=== PATIENT | male | born 1960 | race Caucasian/White ===

== ENCOUNTER 2024-10-22 11:57 | Observation (INO) ==
--- NOTE | 2024-09-14 11:55 | Anesthesiology Consultation ---
Date of Service September 14, 2024 Assessment & Plan (1) Encounter for pre-operative examination: - Infectious disease screening: Per assessment on 09/14/24- No known recent infectious disease contacts or current infectious disease symptoms. - Check BSG DOS - Check BMP DOS (Peritoneal dialysis HS) - Ozempic instructions: Patient informed by PAT to stop 7 days prior to surgery- voiced understanding. DOS 09/21/24. Per PAT RN phone interview, patient's last dose will be 08/24/24. - Neurology note 05/07/24: Per note, pt "presented to [facility] in March 2024 with left hand weakness and found to have an Acute right precentral gyrus stroke - suspect cardioembolic with evidence of old left occipital and right cerebellar strokes." (Note: CVA 03/31/24) "Impression: 1. acute right precentral gyrus stroke in March 2024, 2. old left occipital and small right cerebellar peduncle infarcts, 3. gait instability due to severe peripheral neuropathy, 4. cervical spinal stenosis, 5. tongue rolling - possible TD. Reglan stopped 2 weeks ago, 5. severe peripheral neuropathy." Gabapentin dosing adjusted to help with neuropathy. No additional changes made. 'F/u as scheduled." - Cardiology visit 07/29/24: "Coronary artery disease status post stenting of RCA (the setting of STEMI 10/2023, prior stenting February 2023).. Heart failure recovered ejection fraction, Dx 03/2024, in the setting of CVA.. ESRD on peritoneal dialysis.. Continue aspirin and Plavix.. Acute heart failure with recovered ejection fraction.. Euvolemic on exam.. Cryptogenic CVA: S/p loop recorder. No A-fib so far." > Cardiology made aware of upcoming urology surgery- advised from their perspective that patient okay to hold Plavix 5 days prior to surgery and continue ASA perioperatively > Given patient had CVA 03/2024, ultimate decision for patient to remain on ASA/plavix perioperatively. - Patient with recent stroke 03/2024 and cardiac stent x1 10/2023. Surgeon's office made aware of recent stroke/stent/increased risks. Per Roselia with surgeon's office, surgeon will have patient continue ASA/plavix perioperatively given recent stroke (patient aware). Patient had cystoscopy, stent placement, ureteral dilation done 09/10/24 under [place] (Grade view 1, glidescope#4, ETT 7.5 at [facility]) without issue. Prior to this surgery, case reviewed with Dr. Ballard. Given patient to remain on ASA/plavix perioperatively, he felt patient okay to proceed with given surgery. Patient now scheduled for cystoscopy, ureteral dilation, laser destruction/extraction, stent 09/21/24. Confirmed with patient/ via phone 09/14/24 that patient will again be continuing ASA/plavix perioperatively. Patient acceptable risk for given surgery pending evaluation DOS. Chart Review Chart Review: Patient NOT seen in Pre Admission Testing History Surgery Operation Date: 09/21/24 12:50 Proposed Procedures p Cystoscopy Ureteronephroscopy, Retrograde Pyelogram with Possible Ureteral Dilation, Laser Destruction or Extraction of the Stone, Insertion or Exchange of Stent Catheter Bilateral - Darrius Ceron, Height/Weight Height: 6 ft Weight: 114.305 kg Allergies Allergy/AdvReac Type Severity Reaction Status Date / Time metoclopramide [From Reglan] Allergy Severe Tardive Verified 09/14/24 10:53 dyskinesia scopolamine Allergy Severe Hallucinati Verified 09/14/24 10:53 ng Medications Home Medications Medication Instructions Recorded Confirmed Last Taken allopurinol 100 mg tablet 100 mg PO QAM 08/21/24 09/14/24 09/09/24 11:00 alprazolam 0.25 mg tablet (Xanax) 0.25 mg PO DAILY PRN Anxiety 08/21/24 09/14/24 Unknown aspirin 81 mg tablet,delayed 81 mg PO HS 08/21/24 09/14/24 09/09/24 22:00 release atorvastatin 40 mg tablet 40 mg PO HS 08/21/24 09/14/24 09/09/24 22:00 bisacodyl 10 mg rectal suppository 10 mg [place] UD PRN Constipation 08/21/24 09/14/24 Unknown cetirizine 10 mg tablet (Zyrtec) 10 mg PO DAILY PRN Congestion 08/21/24 09/14/24 Unknown clopidogrel 75 mg tablet 75 mg PO QAM 08/21/24 09/14/24 09/09/24 11:00 evolocumab 140 mg/mL subcutaneous 140 mg subcut UD 08/21/24 09/14/24 09/08/24 22:00 pen injector (Repatha SureClick) finasteride 5 mg tablet 5 mg PO QAM 08/21/24 09/14/24 09/09/24 11:00 gabapentin 100 mg capsule 200 mg PO BID 08/21/24 09/14/24 09/10/24 09:30 hydralazine 50 mg tablet 25 mg PO BID 08/21/24 09/14/24 09/10/24 09:30 hydrocodone 5 mg-acetaminophen 325 1 tab PO Q6H PRN Pain 08/21/24 09/14/24 Unknown mg tablet hydroxyzine HCl 25 mg tablet 25 mg PO QID PRN Itching 08/21/24 09/14/24 09/09/24 22:00 linaclotide 145 mcg capsule 145 mcg PO DAILY 08/21/24 09/14/24 Unknown (Linzeslinda) magnesium oxide 400 mg (241.3 mg 400 mg PO BID 08/21/24 09/14/24 09/09/24 22:00 magnesium) tablet metoprolol succinate 50 mg 50 mg PO QAM 08/21/24 09/14/24 09/09/24 09:30 tablet,extended release 24 hr nitroglycerin 0.4 mg sublingual 0.4 mg buccal UD PRN Chest Pain 08/21/24 09/14/24 Unknown tablet oxycodone 5 mg tablet 5 mg PO BID PRN Pain 08/21/24 09/14/24 09/09/24 22:00 oxycodone 5 mg tablet 5 mg PO UD PRN Pain 08/21/24 09/14/24 Unknown pantoprazole 40 mg tablet,delayed 40 mg PO QAM 08/21/24 09/14/24 09/09/24 09:30 release polyethylene glycol 3350 17 17 g PO DAILY PRN Constipation 08/21/24 09/14/24 09/08/24 14:00 gram/dose oral powder (Miralax) potassium chloride 20 mEq 10 meq PO BID 08/21/24 09/14/24 09/09/24 11:00 tablet,extended release semaglutide 0.25 mg or 0.5 mg (2 0.25 mg subcut WK 08/21/24 09/14/24 08/31/24 22:00 mg/3 mL) subcutaneous pen injector (Amy) senna-docusate sodium capsule 1 - 2 cap PO HS 08/21/24 09/14/24 09/08/24 22:00 sucroferric oxyhydroxide 500 mg 500 mg PO BID 08/21/24 09/14/24 09/09/24 22:00 chewable tablet (Velphoro) temazepam 7.5 mg capsule (Restoril) 7.5 mg PO HS PRN Sleep 08/21/24 09/14/24 Unknown vit B,C-folic ac 800 mcg-zinc 12.5 1 tab PO QAM 08/21/24 09/14/24 09/09/24 11:00 mg-selen-D3 2,000 unit-vit E tablet (RenaPlex-D) alfuzosin 10 mg tablet,extended 10 mg PO HS 09/02/24 09/14/24 09/09/24 22:00 release 24 hr dupilumab 300 mg/2 mL subcutaneous 300 mg subcut UD 09/02/24 09/14/24 09/08/24 22:00 pen injector (Dupixent) insulin degludec 200 unit/mL (3 65 unit subcut HS 09/02/24 09/14/24 09/09/24 22:00 mL) subcutaneous pen (Tresiba FlexTouch U-200 insulin) insulin lispro 100 unit/mL 5 unit subcut BID 09/02/24 09/14/24 09/09/24 20:00 subcutaneous pen (Humalog KwikPen (U-100) Insulin) cephalexin 500 mg capsule 500 mg PO BID 7 days #14 caps 09/10/24 09/14/24 Unknown phenazopyridine 200 mg tablet 200 mg PO Q8H PRN pain #10 tabs 09/10/24 09/14/24 Unknown (Pyridium) tamsulosin 0.4 mg capsule 0.4 mg PO HS #30 caps 09/10/24 09/14/24 Unknown Past Medical History Medical History AV fistula Left wrist > "not functioning" BPH w urinary obs/LUTS Diabetes Dialysis patient Peritoneal at home through the night ESRD (end stage renal disease) Gastroparesis Heart failure Echo 03/2024 History of COVID-19 09/2023 History of kidney stones History of stroke 03/2024 > Left hand weakness Follows with [facility] neuro [place] Hx of bronchitis "Chronic" per patient, no noted acute flares/issues Hx of myocardial infarction 1998, 10/2023 Hx of traumatic brain injury Brain bleed 2021 after fall > "resolved", no issues since Hypercholesteremia Nephrolithiasis Neuropathy "Severe" > mobility issues Peritoneal dialysis catheter in place Sleep apnea CPAP Status post placement of implantable loop recorder Implanted 05/2024 Tardive dyskinesia R/t hx Reglan use Thyroid cancer Recent dx 06/2024 Wheelchair dependent Past Family History Family History Father Diabetes Hypertension Heart disease Melanoma Mother Diabetes Hypertension Heart disease Past Surgical History Surgical History 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 History of cardiac cath (10/2023) 10/2023 > stent x1 History of colonoscopy History of esophagogastroduodenoscopy (EGD) History of heart artery stent 10/2023 > stent x1 History of lithotripsy Hx of vascular surgery Ballooning procedure to left leg S/P cystoscopy with ureteral stent placement (09/10/24[facility], most recent 09/10/24 Social History Smoking Status: Never smoker Do You Dip or Chew Tobacco: No Hx Alcohol Use: No Hx Substance Use: No substance use type: does not use Lab Results Anesthesia Preop Results Results Anesthesia Widget: Na 137 mmol/L (136-145) 09/11/24 K 4.9 mmol/L (3.5-5.1) 09/11/24 Cl 96 mmol/L (98-107) L 09/11/24 CO2 25 mmol/L (21-32) 09/11/24 BUN 61 mg/dl (6-23) H 09/11/24 Creat 9.58 mg/dl (0.6-1.4) H* 09/11/24 Glucose Level 168 mg/dl (70-99(Fasting)) H 09/11/24 Testing Laboratory Results 09/03/24 WBC 7.8 H/H 12.0/35.9 PLATELETS 195 URINE CULTURE less than 10,000 cfu/mL Electrocardiogram Date: 03/31/24 NSR at 77bpm. LAD. RBBB. Septal infarct, age undetermined. Possible lateral infarct, age undetermined. unconfirmed report. Echo 03/31/24. Chest X-Ray Date: 04/03/24 Right dialysis catheter tip at the cavoatrial junction. No pneumothorax. No effusion or consolidation. Echocardiogram Date: 07/10/24 LVEF 50-55%. Diastolic function could not be assessed due to incomplete data.
[~2024-10-22 11:57] MED LIST: SODIUM CHLORIDE 0.9% 1000ML IV SCH; ceFAZolin 2000MG 2,000 MG/15 ML SYR IV SCH
[2024-10-22] MEDS ORDERED: ALPRAZolam 0.25 MG TABLET PO PRN (12:43)
[2024-10-22] MEDS ORDERED: TEMAZEPAM 7.5 MG CAPSULE PO PRN (12:43)
[2024-10-22] MEDS ORDERED: bisacodyL 10 MG SUPP PR PRN (12:43)
--- NOTE | 2024-10-22 12:43 | History & Physical Report ---
Date of Service October 22, 2024 Assessment & Plan (1) Nephrolithiasis: (2) Neuropathy: (3) End stage renal disease: (4) BPH w urinary obs/LUTS: Plan Large bilateral stone disease with fast reoccurrence of stone and poorly tolerated previous interventions. Not interested in other options for treatment. On peritoneal dialysis with chronic severe end stage renal disease. Medications for stone management have been less effective as renal disease worsened. Extensively discuss need for staged treatment with possible multiple interventions bilaterally with ureteroscopy in order to clear the bulkiness of the stones. Discussed options for conservative measure and maximum expulsion medical therapy and symptom controlled. Discussed ESWL. Discussed Ureteroscopy with extraction and/or laser lithotripsy. Risks and benefits were discussed. Stone free rates were also discussed as well as possibility of multiple procedures. Ureteral stents were discussed as well as post-operative issues and pain management. All questions were answered. Plan for cystoscopy with possible bilateral ureteroscopy and stone treatment. Will likely need multiple interventions possibly with multiple interventions bilaterally in order to clear the large stone burden. Patient and family worried about infection and issues post procedure. Plan for observation overnight. Will consult nephrology with plans for dialysis management during observation. Likely discharge tomorrow History of Present Illness Primary Care Provider: Vishal Oshea Patient here for procedure. No changes in medical issues. No major changes in urinary issues. Continued issues and concerns. No change in pain or discomfort. No severe fevers or chills. No chest pain or shortness of breath. Risks and benefits discussed at length for procedure. These include bleeding, infection, injury to surrounding tissues or organs, and risks associated with anesthesia. Patient and/or family states understanding and agrees to proceed. Consent and supporting information completed. Allergies Allergy/AdvReac Type Severity Reaction Status Date / Time metoclopramide [From Reglan] Allergy Severe Tardive Verified 10/22/24 12:29 dyskinesia scopolamine Allergy Severe Hallucinati Verified 10/22/24 12:29 ng Home Medications Medication Instructions Recorded Confirmed Type allopurinol 100 mg tablet 100 mg PO QAM 08/21/24 10/19/24 History alprazolam 0.25 mg tablet (Xanax) 0.25 mg PO DAILY PRN Anxiety 08/21/24 10/19/24 History aspirin 81 mg tablet,delayed 81 mg PO HS 08/21/24 10/19/24 History release atorvastatin 40 mg tablet 40 mg PO HS 08/21/24 10/19/24 History bisacodyl 10 mg rectal suppository 10 mg [place] UD PRN Constipation 08/21/24 10/19/24 History clopidogrel 75 mg tablet 75 mg PO QAM 08/21/24 10/19/24 History evolocumab 140 mg/mL subcutaneous 140 mg subcut UD 08/21/24 10/19/24 History pen injector (Gregor LondonKirit) finasteride 5 mg tablet 5 mg PO QAM 08/21/24 10/19/24 History gabapentin 100 mg capsule 300 mg PO QAM 08/21/24 10/19/24 History hydralazine 50 mg tablet 25 mg PO BID 08/21/24 10/19/24 History hydroxyzine HCl 25 mg tablet 25 mg PO QID PRN Itching 08/21/24 10/19/24 History magnesium oxide 400 mg (241.3 mg 400 mg PO BID 08/21/24 10/19/24 History magnesium) tablet nitroglycerin 0.4 mg sublingual 0.4 mg buccal UD PRN Chest Pain 08/21/24 10/19/24 History tablet oxycodone 5 mg tablet 5 mg PO BID PRN Pain 08/21/24 10/19/24 History pantoprazole 40 mg tablet,delayed 40 mg PO QAM 08/21/24 10/19/24 History release polyethylene glycol 3350 17 17 g PO DAILY PRN Constipation 08/21/24 10/19/24 History gram/dose oral powder (Miralax) potassium chloride 20 mEq 10 meq PO BID 08/21/24 10/19/24 History tablet,extended release senna-docusate sodium capsule 1 - 2 cap PO HS 08/21/24 10/19/24 History sucroferric oxyhydroxide 500 mg 500 mg PO BID 08/21/24 10/19/24 History chewable tablet (Velphoro) temazepam 7.5 mg capsule (Restoril) 7.5 mg PO HS PRN Sleep 08/21/24 10/19/24 History vit B,C-folic ac 800 mcg-zinc 12.5 1 tab PO QAM 08/21/24 10/19/24 History mg-selen-D3 2,000 unit-vit E tablet (RenaPlex-D) dupilumab 300 mg/2 mL subcutaneous 300 mg subcut UD 09/02/24 10/19/24 History pen injector (Dupixent) insulin degludec 200 unit/mL (3 50 unit subcut HS 09/02/24 10/19/24 History mL) subcutaneous pen (Tresiba FlexTouch U-200 insulin) insulin lispro 100 unit/mL 5 - 10 unit subcut BID 09/02/24 10/19/24 History subcutaneous pen (Humalog KwikPen (U-100) Insulin) cinacalcet 30 mg tablet (Sensipar) 30 mg PO 3XWK 10/19/24 10/19/24 History lactulose 10 gram/15 mL oral 10 g PO DAILY PRN Constipation 10/19/24 10/19/24 History solution Past Med/Surg History Problem List Elevated serum creatinine Hypercholesterolemia Medical History History of recent hospitalization admitted 09/17/24 @ [facility]--severely dehydrated, had low BP, very weak, low urine output (bloody urine) History of kidney stones Hx of traumatic brain injury Brain bleed 2021 after fall > "resolved", no issues since Tardive dyskinesia R/t hx Reglan use Wheelchair dependent AV fistula Left wrist > "not functioning" Thyroid cancer Recent dx 06/2024--"very large nodule"--having thyroid ultrasound for follow up 10/20/24 @ [facility] Station Medical History of COVID-19 09/2023 Hx of myocardial infarction 1998, 10/2023 Status post placement of implantable loop recorder Implanted 05/2024 Hypercholesteremia Diabetes Gastroparesis BPH w urinary obs/LUTS Nephrolithiasis Neuropathy "Severe" > mobility issues ESRD (end stage renal disease) Peritoneal dialysis catheter in place Sleep apnea CPAP Hx of bronchitis "Chronic" per patient, no noted acute flares/issues History of stroke 03/2024 > Left hand weakness Follows with [facility] neuro [place] Dialysis patient Peritoneal at home through the night Heart failure Echo 03/2024 Surgical History S/P cystoscopy with ureteral stent placement (09/10/24) [facility], most recent 09/10/24 History of lithotripsy 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 Hx of vascular surgery Ballooning procedure to left leg History of esophagogastroduodenoscopy (EGD) History of colonoscopy History of heart artery stent 10/2023 > stent x1 History of cardiac cath (10/2023) 10/2023 > stent x1 Family History Father Diabetes Hypertension Heart disease Melanoma Mother Diabetes Hypertension Heart disease Social History Smoking Status: Never smoker Second Hand Exposure: No; Do You Dip or Chew Tobacco: No; Tobacco Cessation Education Requested by Patient: No Hx Alcohol Use: No Hx Substance Use: No Preferred Language: Croatian Communication Ability: Effective Small Engine Mechanic Required: No Beliefs That Will Affect Care: None marital status: Current Living Situation: Spouse Other Information That Helps Us Care for You: No Safety Concerns: Feels Safe At This Time Assistive Devices: CPAP, Glasses, Walker and Wheelchair Review of Systems All systems reviewed & are unremarkable except as noted in HPI & below Physical Exam Physical Exam: General: Alert/Arousable. No Acute illness. . HEENT: Inspection normal. Normal inspection of face. Normal inspection of neck. Psychologic: Normal affect/No change in mentation. Respiratory: No use of accessory muscles. No respiratory changes or exacerbation or changes with tachypnea or dyspnea. Cardiovascular: No tachycardia Skin: Aneta and Dry. No new rashes or visible lesions. Abdomen: Normal inspection. No guarding. Results & Data Vital Signs (Past 12 Hours) Vital Signs Temp Pulse Resp BP Pulse Ox O2 Del Method 10/22/24 12:31 36.6 C 69 20 113/95 100 Room Air PG Care Time/CCT Total # of Minutes Spent Total Time Spent with Patient: Total time spent is greater than 50% in coordination of care (as documented) at patient's floor/unit and/or counseling patient: Coding Level of Care Code None Diagnoses Nephrolithiasis N20.0 Neuropathy G62.9 End stage renal disease N18.6 BPH w urinary obs/LUTS N40.1; N13.8
[2024-10-22 12:45] LABS: BUN Creatinine Ratio 5.1 (10-20); Calcium 10.8 mg/dl (8.6-10.3); Creatinine Clr Calc Pharmacy 10.2 ml/min; Potassium 4.7 mmol/L (3.5-5.1)
[2024-10-22] MEDS ORDERED: PROPOFOL IV EMULSION 10 MG/ML 20 ML VIAL IV ONE (12:53)
[2024-10-22] MEDS ORDERED: LIDOCAINE 2% 2 ML VIAL/AMP(20MG/ML) INFIL ONE ×2 (12:54→12:55)
[2024-10-22] MEDS ORDERED: fentaNYL citrate PF 100 MCG/2 ML VIAL ONE (12:56)
[2024-10-22] MEDS ORDERED: MIDAZOLAM HCL 1 MG/ML 2ML VIAL ONE (12:56)
[2024-10-22] MEDS: SODIUM CHLORIDE 0.9% 1000ML IV SCH (12:58)
[2024-10-22] MEDS ORDERED: ROCURONIUM BROMIDE 10 MG/ML 5 ML VIAL IV ONE (12:58)
[2024-10-22] MEDS ORDERED: ONDANSETRON INJ 2 MG/ML 2 ML VIAL ONE (12:59)
[2024-10-22] MEDS ORDERED: PROMETHAZINE HCL 6.25 MG in SODIUM CHLORIDE 0.9% 50 ML IV PRN (13:31)
[2024-10-22] MEDS ORDERED: ATROPINE SULFATE 0.1 MG/ML 10ML SYR IV PRN (13:31)
[2024-10-22] MEDS ORDERED: ePHEDrine sulfate 50 MG/ML AMP IV PRN (13:31)
--- NOTE | 2024-10-22 13:31 | Anesthesiology Consultation ---
Date of Service October 22, 2024 Assessment & Plan Consults Requested medical & cardiac Pulmonary ASA ASA3 Proposed Anesthesia Anesthesia Type: General (ET tube with rapid sequence induction given patient with gastroparesis and high risk of aspiration ) Risk / Benefits Reviewed With: PT / POA / Parent / Guardian, Accepts Plan and Informed Consent Obtained History Surgery Operation Date: 10/22/24 13:25 Proposed Procedures p Cystoscopy Ureteronephroscopy, Retrograde Pyelogram with Possible Ureteral Dilation, Laser Destruction or Extraction of the Stone, Insertion or Exchange of Stent Catheter Bilateral - Darrius Ceron, Height/Weight Height: 6 ft Weight: 115.212 kg Allergies Allergy/AdvReac Type Severity Reaction Status Date / Time metoclopramide [From Reglan] Allergy Severe Tardive Verified 10/22/24 12:29 dyskinesia scopolamine Allergy Severe Hallucinati Verified 10/22/24 12:29 ng Medications Home Medications Medication Instructions Recorded Confirmed Last Taken allopurinol 100 mg tablet 100 mg PO QAM 08/21/24 10/22/24 10/21/24 12:00 alprazolam 0.25 mg tablet (Xanax) 0.25 mg PO DAILY PRN Anxiety 08/21/24 10/19/24 Unknown aspirin 81 mg tablet,delayed 81 mg PO HS 08/21/24 10/22/24 10/21/24 12:00 release atorvastatin 40 mg tablet 40 mg PO HS 08/21/24 10/22/24 10/21/24 22:00 bisacodyl 10 mg rectal suppository 10 mg MD UD PRN Constipation 08/21/24 10/19/24 Unknown clopidogrel 75 mg tablet 75 mg PO QAM 08/21/24 10/22/24 10/20/24 12:00 evolocumab 140 mg/mL subcutaneous 140 mg subcut UD 08/21/24 10/22/24 10/20/24 14:00 pen injector (Gregor Delcid) finasteride 5 mg tablet 5 mg PO QAM 08/21/24 10/22/24 10/21/24 12:00 gabapentin 100 mg capsule 300 mg PO QAM 08/21/24 10/22/24 10/22/24 10:00 hydralazine 50 mg tablet 25 mg PO BID 08/21/24 10/22/24 10/22/24 10:00 hydroxyzine HCl 25 mg tablet 25 mg PO QID PRN Itching 08/21/24 10/22/24 10/21/24 12:00 magnesium oxide 400 mg (241.3 mg 400 mg PO BID 08/21/24 10/22/24 10/21/24 22:00 magnesium) tablet nitroglycerin 0.4 mg sublingual 0.4 mg buccal UD PRN Chest Pain 08/21/24 10/19/24 Unknown tablet oxycodone 5 mg tablet 5 mg PO BID PRN Pain 08/21/24 10/22/24 10/21/24 12:00 pantoprazole 40 mg tablet,delayed 40 mg PO QAM 08/21/24 10/22/24 10/22/24 10:00 release polyethylene glycol 3350 17 17 g PO DAILY PRN Constipation 08/21/24 10/19/24 09/08/24 14:00 gram/dose oral powder (Miralax) potassium chloride 20 mEq 10 meq PO BID 08/21/24 10/22/24 10/21/24 12:00 tablet,extended release senna-docusate sodium capsule 1 - 2 cap PO HS 08/21/24 10/19/24 09/08/24 22:00 sucroferric oxyhydroxide 500 mg 500 mg PO BID 08/21/24 10/22/24 10/21/24 17:00 chewable tablet (Velphoro) temazepam 7.5 mg capsule (Restoril) 7.5 mg PO HS PRN Sleep 08/21/24 10/19/24 Unknown vit B,C-folic ac 800 mcg-zinc 12.5 1 tab PO QAM 08/21/24 10/22/24 10/21/24 12:00 mg-selen-D3 2,000 unit-vit E tablet (RenaPlex-D) dupilumab 300 mg/2 mL subcutaneous 300 mg subcut UD 09/02/24 10/22/24 10/20/24 22:00 pen injector (Dupixent) insulin degludec 200 unit/mL (3 50 unit subcut HS 09/02/24 10/22/24 10/21/24 22:00 mL) subcutaneous pen (Tresiba FlexTouch U-200 insulin) insulin lispro 100 unit/mL 5 - 10 unit subcut BID 10/10/22/24 10/21/24 21:00 subcutaneous pen (Humalog KwikPen (U-100) Insulin) cinacalcet 30 mg tablet (Sensipar) 30 mg PO 3XWK 10/19/24 10/22/24 10/21/24 12:00 lactulose 10 gram/15 mL oral 10 g PO DAILY PRN Constipation 10/19/24 10/22/24 10/21/24 22:00 solution Active Medications Generic Name Dose Route Start Last Admin Trade Name Kayla PRN Reason Stop Dose Admin Sodium Chloride 1,000 mls @ 15 mls/hr 10/22/24 16:00 10/22/24 12:58 Nss IV 10/23/24 15:59 15 mls/hr .Q24H JOHNNY Administration NPO Date Last Intake of Fluids: 10/22/24 Time Last Intake of Fluids: 10:00 Last Intake of Fluids Comment: sip with meds Date Last Intake of Solids: 10/21/24 Time Last Intake of Solids: 21:30 Past Medical History Medical History History of recent hospitalization admitted 09/17/24 @ [facility]--severely dehydrated, had low BP, very weak, low urine output (bloody urine) History of kidney stones Hx of traumatic brain injury Brain bleed 2021 after fall > "resolved", no issues since Tardive dyskinesia R/t hx Reglan use Wheelchair dependent AV fistula Left wrist > "not functioning" Thyroid cancer Recent dx 06/2024--"very large nodule"--having thyroid ultrasound for follow up 10/20/24 @ [facility] Station Medical History of COVID-19 09/2023 Hx of myocardial infarction 1998, 10/2023 Status post placement of implantable loop recorder Implanted 05/2024 Hypercholesteremia Diabetes Gastroparesis BPH w urinary obs/LUTS Nephrolithiasis Neuropathy "Severe" > mobility issues ESRD (end stage renal disease) Peritoneal dialysis catheter in place Sleep apnea CPAP Hx of bronchitis "Chronic" per patient, no noted acute flares/issues History of stroke 03/2024 > Left hand weakness Follows with [facility] neuro Holder Dialysis patient Peritoneal at home through the night Heart failure Echo 03/2024 Exercise / Class Metabolic Activity II 4-5 Yardwork/Stairs/Walk up hill Past Family History Family History Father Diabetes Hypertension Heart disease Melanoma Mother Diabetes Hypertension Heart disease Past Surgical History Surgical History S/P cystoscopy with ureteral stent placement (09/10/24) rick, most recent 09/10/24 History of lithotripsy 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 Hx of vascular surgery Ballooning procedure to left leg History of esophagogastroduodenoscopy (EGD) History of colonoscopy History of heart artery stent 10/2023 > stent x1 History of cardiac cath (10/2023) 10/2023 > stent x1 Past Anesthesia History No Hx of Anesthesia Complications and No Family Hx of Anesthesia Complications History of PONV No Hx of PONV and No Hx of Motion Sickness Social History Smoking Status: Never smoker Do You Dip or Chew Tobacco: No Hx Alcohol Use: No Hx Substance Use: No substance use type: does not use Physical Exam Vital Signs Last Vital Signs Temp 36.6 C 10/22/24 12:31 Pulse 69 10/22/24 12:31 Resp 20 10/22/24 12:31 BP 113/95 10/22/24 12:31 Pulse Ox 100 10/22/24 12:31 O2 Del Method Room Air 10/22/24 12:31 Constitutional no acute distress ENMT Mouth: no dentition abnormality Thyromental Distance: > or= 3.5 Finger Breadths Mallampati Class: II Neck normal visual inspection Respiratory normal respiratory effort; no respiratory distress Auscultation: lungs clear to auscultation bilaterally Cardiovascular Rate/Rhythm: regular rate and regular rhythm Heart Sounds: no murmur Musculoskeletal Spine: normal cervical ROM Psychiatric Orientation: alert and oriented x 3 Testing Laboratory Results 10/22/24 12:09 10/22/24 12:29 POC Glucose 186 H Electrocardiogram Date: 03/31/24 NSR at 77bpm. LAD. RBBB. Septal infarct, age undetermined. Possible lateral infarct, age undetermined. unconfirmed report. Echo 03/31/24. Chest X-Ray Date: 04/03/24 Right dialysis catheter tip at the cavoatrial junction. No pneumothorax. No effusion or consolidation. Echocardiogram Date: 07/10/24 LVEF 50-55%. Diastolic function could not be assessed due to incomplete data. Day of Procedure Evaluation. Date of Surgery October 22, 2024 Height/Weight Height: 6 ft Weight: 115.212 kg Vital Signs Last Vital Signs Temp 36.6 C 10/22/24 12:31 Pulse 69 10/22/24 12:31 Resp 20 10/22/24 12:31 BP 113/95 10/22/24 12:31 Pulse Ox 100 10/22/24 12:31 O2 Del Method Room Air 10/22/24 12:31 Allergies Allergy/AdvReac Type Severity Reaction Status Date / Time metoclopramide [From Reglan] Allergy Severe Tardive Verified 10/22/24 12:29 dyskinesia scopolamine Allergy Severe Hallucinati Verified 10/22/24 12:29 ng Medications Home Medications Medication Instructions Recorded Confirmed Last Taken allopurinol 100 mg tablet 100 mg PO QAM 08/21/24 10/22/24 10/21/24 12:00 alprazolam 0.25 mg tablet (Xanax) 0.25 mg PO DAILY PRN Anxiety 08/21/24 10/19/24 Unknown aspirin 81 mg tablet,delayed 81 mg PO HS 08/21/24 10/22/24 10/21/24 12:00 release atorvastatin 40 mg tablet 40 mg PO HS 08/21/24 10/22/24 10/21/24 22:00 bisacodyl 10 mg rectal suppository 10 mg MD UD PRN Constipation 08/21/24 10/19/24 Unknown clopidogrel 75 mg tablet 75 mg PO QAM 08/21/24 10/22/24 10/20/24 12:00 evolocumab 140 mg/mL subcutaneous 140 mg subcut UD 08/21/24 10/22/24 10/20/24 14:00 pen injector (Gregor Delcid) finasteride 5 mg tablet 5 mg PO QAM 08/21/24 10/22/24 10/21/24 12:00 gabapentin 100 mg capsule 300 mg PO QAM 08/21/24 10/22/24 10/22/24 10:00 hydralazine 50 mg tablet 25 mg PO BID 08/21/24 10/22/24 10/22/24 10:00 hydroxyzine HCl 25 mg tablet 25 mg PO QID PRN Itching 08/21/24 10/22/24 10/21/24 12:00 magnesium oxide 400 mg (241.3 mg 400 mg PO BID 08/21/24 10/22/24 10/21/24 22:00 magnesium) tablet nitroglycerin 0.4 mg sublingual 0.4 mg buccal UD PRN Chest Pain 08/21/24 10/19/24 Unknown tablet oxycodone 5 mg tablet 5 mg PO BID PRN Pain 08/21/24 10/22/24 10/21/24 12:00 pantoprazole 40 mg tablet,delayed 40 mg PO QAM 08/21/24 10/22/24 10/22/24 10:00 release polyethylene glycol 3350 17 17 g PO DAILY PRN Constipation 08/21/24 10/19/24 09/08/24 14:00 gram/dose oral powder (Miralax) potassium chloride 20 mEq 10 meq PO BID 08/21/24 10/22/24 10/21/24 12:00 tablet,extended release senna-docusate sodium capsule 1 - 2 cap PO HS 08/21/24 10/19/24 09/08/24 22:00 sucroferric oxyhydroxide 500 mg 500 mg PO BID 08/21/24 10/22/24 10/21/24 17:00 chewable tablet (Velphoro) temazepam 7.5 mg capsule (Restoril) 7.5 mg PO HS PRN Sleep 08/21/24 10/19/24 Unknown vit B,C-folic ac 800 mcg-zinc 12.5 1 tab PO QAM 08/21/24 10/22/24 10/21/24 12:00 mg-selen-D3 2,000 unit-vit E tablet (RenaPlex-D) dupilumab 300 mg/2 mL subcutaneous 300 mg subcut UD 09/02/24 10/22/24 10/20/24 22:00 pen injector (Dupixent) insulin degludec 200 unit/mL (3 50 unit subcut HS 09/02/24 10/22/24 10/21/24 22:00 mL) subcutaneous pen (Tresiba FlexTouch U-200 insulin) insulin lispro 100 unit/mL 5 - 10 unit subcut BID 09/02/24 10/22/24 10/21/24 21:00 subcutaneous pen (Humalog KwikPen (U-100) Insulin) cinacalcet 30 mg tablet (Sensipar) 30 mg PO 3XWK 10/19/24 10/22/24 10/21/24 12:00 lactulose 10 gram/15 mL oral 10 g PO DAILY PRN Constipation 10/19/24 10/22/24 10/21/24 22:00 solution Active Medications Generic Name Dose Route Start Last Admin Trade Name Freq PRN Reason Stop Dose Admin Sodium Chloride 1,000 mls @ 15 mls/hr 10/22/24 16:00 10/22/24 12:58 Nss IV 10/23/24 15:59 15 mls/hr .Q24H JOHNNY Administration Past Anesthesia History No Hx of Anesthesia Complications and No Family Hx of Anesthesia Complications History of PONV No Hx of PONV and No Hx of Motion Sickness NPO Date Last Intake of Fluids: 10/22/24 Time Last Intake of Fluids: 10:00 Last Intake of Fluids Comment: sip with meds Date Last Intake of Solids: 10/21/24 Time Last Intake of Solids: 21:30 HCG & FBG Results 10/22/24 12:29 POC Glucose 186 H Home Medications Home Medications Medication Instructions Recorded Confirmed Last Taken allopurinol 100 mg tablet 100 mg PO QAM 08/21/24 10/22/24 10/21/24 12:00 alprazolam 0.25 mg tablet (Xanax) 0.25 mg PO DAILY PRN Anxiety 08/21/24 10/19/24 Unknown aspirin 81 mg tablet,delayed 81 mg PO HS 08/21/24 10/22/24 10/21/24 12:00 release atorvastatin 40 mg tablet 40 mg PO HS 08/21/24 10/22/24 10/21/24 22:00 bisacodyl 10 mg rectal suppository 10 mg MD UD PRN Constipation 08/21/24 10/19/24 Unknown clopidogrel 75 mg tablet 75 mg PO QAM 08/21/24 10/22/24 10/20/24 12:00 evolocumab 140 mg/mL subcutaneous 140 mg subcut UD 08/21/24 10/22/24 10/20/24 14:00 pen injector (Gregor Delcid) finasteride 5 mg tablet 5 mg PO QAM 08/21/24 10/22/24 10/21/24 12:00 gabapentin 100 mg capsule 300 mg PO QAM 08/21/24 10/22/24 10/22/24 10:00 hydralazine 50 mg tablet 25 mg PO BID 08/21/24 10/22/24 10/22/24 10:00 hydroxyzine HCl 25 mg tablet 25 mg PO QID PRN Itching 08/21/24 10/22/24 10/21/24 12:00 magnesium oxide 400 mg (241.3 mg 400 mg PO BID 08/21/24 10/22/24 10/21/24 22:00 magnesium) tablet nitroglycerin 0.4 mg sublingual 0.4 mg buccal UD PRN Chest Pain 08/21/24 10/19/24 Unknown tablet oxycodone 5 mg tablet 5 mg PO BID PRN Pain 08/21/24 10/22/24 10/21/24 12:00 pantoprazole 40 mg tablet,delayed 40 mg PO QAM 08/21/24 10/22/24 10/22/24 10:00 release polyethylene glycol 3350 17 17 g PO DAILY PRN Constipation 08/21/24 10/19/24 09/08/24 14:00 gram/dose oral powder (Miralax) potassium chloride 20 mEq 10 meq PO BID 08/21/24 10/22/24 10/21/24 12:00 tablet,extended release senna-docusate sodium capsule 1 - 2 cap PO HS 08/21/24 10/19/24 09/08/24 22:00 sucroferric oxyhydroxide 500 mg 500 mg PO BID 08/21/24 10/22/24 10/21/24 17:00 chewable tablet (Velphoro) temazepam 7.5 mg capsule (Restoril) 7.5 mg PO HS PRN Sleep 08/21/24 10/19/24 Unknown vit B,C-folic ac 800 mcg-zinc 12.5 1 tab PO QAM 08/21/24 10/22/24 10/21/24 12:00 mg-selen-D3 2,000 unit-vit E tablet (RenaPlex-D) dupilumab 300 mg/2 mL subcutaneous 300 mg subcut UD 09/02/24 10/22/24 10/20/24 22:00 pen injector (Dupixent) insulin degludec 200 unit/mL (3 50 unit subcut HS 09/02/24 10/22/24 10/21/24 22:00 mL) subcutaneous pen (Tresiba FlexTouch U-200 insulin) insulin lispro 100 unit/mL 5 - 10 unit subcut BID 09/02/24 10/22/24 10/21/24 21:00 subcutaneous pen (Humalog KwikPen (U-100) Insulin) cinacalcet 30 mg tablet (Sensipar) 30 mg PO 3XWK 10/19/24 10/22/24 10/21/24 12:00 lactulose 10 gram/15 mL oral 10 g PO DAILY PRN Constipation 10/19/24 10/22/24 10/21/24 22:00 solution Active Medications Generic Name Dose Route Start Last Admin Trade Name Freq PRN Reason Stop Dose Admin Sodium Chloride 1,000 mls @ 15 mls/hr 10/22/24 16:00 10/22/24 12:58 Nss IV 10/23/24 15:59 15 mls/hr .Q24H JOHNNY Administration Exercise / Class Metabolic Activity Metabolic Activity: II 4-5 Yardwork/Stairs/Walk up hill Physical Exam Constitutional: no acute distress Mouth: no dentition abnormality Thyromental Distance: > or= 3.5 Finger Breadths Mallampati Class: II Neck: + visual inspection normal Respiratory: + respiratory effort normal and + clear to auscultation bilaterally; no respiratory distress Cardiovascular: + regular rate and + regular rhythm; no murmur Musculoskeletal: no limited cervical ROM Psychiatric: + alert and + oriented x 3 ASA ASA3 Proposed Anesthesia Proposed Anesthesia: General (ET tube with rapid sequence induction given patient with gastroparesis and high risk of aspiration ) Risk / Benefits Reviewed With: PT / POA / Parent / Guardian, Accepts Plan and Informed Consent Obtained
[2024-10-22] MEDS: ceFAZolin 2000MG 2,000 MG/15 ML SYR IV SCH (14:03)
[2024-10-22] MEDS ORDERED: PHENYLEPHRINE 100MCG/ML 5ML SYR ONE (14:29)
[2024-10-22] MEDS ORDERED: DIATRIZOATE MEGLUMINE 30% 100ML VIAL INSTIL PRN (14:40)
[2024-10-22] MEDS ORDERED: SUGAMMADEX SODIUM 200 MG/2 ML VIAL IV ONE (15:17)
--- NOTE | 2024-10-22 15:30 | Operative Report ---
PG Post Operative Report Pre & Post Diagnosis Operation Date: 10/22/24 13:25 Pre-Op Diagnosis: Neprholithiasis Post-Op Diagnosis: Neprholithiasis I identified the patient and participated in the time-out.: Yes Procedure Operation Date: 10/22/24 13:25 Actual Procedures Cystoscopy with bilateral retrograde pyelogram and bilateral stent exchange. Left Ureteronephroscopy, Ureteral Dilation, Laser Destruction of Stone, Basket Extraction of the Stone, and Exchange of Stent Catheter - Darrius Ceron DO Surgeon Darrius Ceron, II, DO Bag Machine Tender None Estimated Blood Loss 1 Findings Consistent with Post-Op Diagnosis Extensive severe stone disease bilaterally. Stones within the ureter on the left. Innumerable stones with large approx 3.5 cm stone of the left UPJ. Extensive Stones destroyed to dust and small fragments and larger fragments removed. Specimens Stone Fragments - Left renal Drains 7 Fr x 24 cm bilateral 18 Fr Coude Anesthesia Type General Complications none Disposition Disposition: Recovery Room Indications Patient with bothersome stones with severe bilateral burden with ESRD. Risks and benefits discussed at length. Description of Procedure Patient was consented and brought back to the operating room. Patient was placed under anesthesia in the supine position and moved to the dorsal lithotomy position. Patient was prepped and draped in the regular sterile fashion. A time out was completed identifying the correct patient and procedure. A 30degree Cystoscope was placed into the bladder and the entire bladder was examined. The UO's were identified. The stents on each side were grasped and partially removed. The wires were placed through the stents and the stents were then fully removed. The UO was cannulized with a catheter and a retrograde pyelogram was completed. A significant amount of stone was visualized on the right side within the renal pelvis. On the left there was numerous stones seen along the ureter. A wire was then placed bilaterally. The right stent was used to place a 7 Swedish double-J ureteral stent. The stent was confirmed in good position. The wire on the left was maintained. A ureteral access sheath and second safety wire was placed. The flexible ureteroscope was taken into the ureter. Numerous stones in the ureter were discovered. The basket was utilized to remove them. The entire ureter and renal pelvis were examined. The stones were identified. Extensive stone disease were discovered. A laser fiber was selected and the stones were pulverized to dust and small fragments. Larger fragments were grasped and removed and sent for analysis. The entire area was once again examined. No residual large fragments or areas of concern were noted. The scope was slowly removed with the wire left in place. Contrast was placed through the scope for a pyelogram to assist in stent placement. The entire ureter was examined as the scope was slowly removed. No obstructions or other areas of concern were noted. Extensive stone disease was treated. A majority of the larger stones as well as a majority of the bulk of the stones were able to be removed and cleared. With the wire in place, a 7 Fr Double J stent was placed. It was confirmed with fluoroscopy. With the stents in place, the bladder was emptied. The scope was removed. An 18 Swedish Dsouza catheter was then placed. The patient was cleaned, aroused from anesthesia, and transferred to the pacu in stable condition having tolerated the procedure well with no complications. I was present and participated in all aspects of the procedure. The patient will be monitored in the PACU until transferred. Will observe overnight. Plan to consult nephrology and medicine for medical management and management of end-stage renal disease. Will plan to move forward with further treatment of right-sided stones. Will likely get imaging while being observed to reassess stone burden. I attest to the content of the Intraoperative Record and any orders documented therein. Any exceptions are noted below.
[2024-10-22] MEDS: fentaNYL citrate PF 100 MCG/2 ML VIAL IV PRN (15:48)
--- NOTE | 2024-10-22 15:49 | Nephrology Consultation ---
Date of Consultation October 22, 2024 Assessment & Plan (1) ESRD (end stage renal disease): * Will provide NCCPD therapy tonight as per outpatient orders. Dialysis nurse production foreman was notified and orders placed in EMR. * Continue RenaPlex, Velphoro and Sensipar as per outpatient orders * Monitor BMP during hospitalization (2) Kidney stones, calcium oxalate: * s/p cystoscopy with left ureteral nephroscopy and laser destruction of a stone 10/22/[address] Ceron History of Present Illness Reason for Consultation: ESKD on NCCPD therapy Attending Physician: Darrius Ceron, II, DO History of Present Illness Mr. William is a 64-year-old white male who is seen at the request of [facility] urology to provide NCCPD therapy. Information for the HPI is obtained from direct patient interview and review of the EMR. HPI summarized as follows: Mr. William resides in [place], [place]. He has ESKD due to diabetic kidney disease. He is on NCCPD therapy under the direction of Dr. Maria Elena Aviles (PD Rx: 5 exchanges per night 3 L fill volume combination 1.5/2.5 Delflex, fill 10 minutes dwell 90 minutes drain 20 minutes. No daytime dwell. EDW 112.5 kg). His medical history is significant for AODM, HTN, MCA CVA, ASCVD, hypercholesterolemia, obesity, traumatic brain injury following a fall, tardive dyskinesia, wheelchair-bound status, and kidney stones. Earlier today Mr. William underwent cystoscopy with left ureteral nephroscopy and laser destruction of a stone. He is being admitted overnight for monitoring and will require peritoneal dialysis. Allergies Allergy/AdvReac Type Severity Reaction Status Date / Time metoclopramide [From Reglan] Allergy Severe Tardive Verified 10/22/24 12:29 dyskinesia scopolamine Allergy Severe Hallucinati Verified 10/22/24 12:29 ng Home Medications Medication Instructions Recorded Confirmed Type allopurinol 100 mg tablet 100 mg PO QAM 08/21/24 10/22/24 History alprazolam 0.25 mg tablet (Xanax) 0.25 mg PO DAILY PRN Anxiety 08/21/24 10/19/24 History aspirin 81 mg tablet,delayed 81 mg PO HS 08/21/24 10/22/24 History release atorvastatin 40 mg tablet 40 mg PO HS 08/21/24 10/22/24 History bisacodyl 10 mg rectal suppository 10 mg [place] DAILY PRN Constipation 08/21/24 10/22/24 History clopidogrel 75 mg tablet 75 mg PO QAM 08/21/24 10/22/24 History evolocumab 140 mg/mL subcutaneous 140 mg subcut UD 08/21/24 10/22/24 History pen injector (Gregor Delcid) finasteride 5 mg tablet 5 mg PO QAM 08/21/24 10/22/24 History gabapentin 100 mg capsule 300 mg PO QAM 08/21/24 10/22/24 History hydralazine 50 mg tablet 25 mg PO BID 08/21/24 10/22/24 History hydroxyzine HCl 25 mg tablet 25 mg PO QID PRN Itching 08/21/24 10/22/24 History magnesium oxide 400 mg (241.3 mg 400 mg PO BID 08/21/24 10/22/24 History magnesium) tablet nitroglycerin 0.4 mg sublingual 0.4 mg buccal UD PRN Chest Pain 08/21/24 10/19/24 History tablet oxycodone 5 mg tablet 5 mg PO BID PRN Pain 08/21/24 10/22/24 History pantoprazole 40 mg tablet,delayed 40 mg PO QAM 08/21/24 10/22/24 History release polyethylene glycol 3350 17 17 g PO DAILY PRN Constipation 08/21/24 10/19/24 History gram/dose oral powder (Miralax) potassium chloride 20 mEq 10 meq PO BID 08/21/24 10/22/24 History tablet,extended release senna-docusate sodium capsule 1 - 2 cap PO HS 08/21/24 10/19/24 History sucroferric oxyhydroxide 500 mg 500 mg PO BID 08/21/24 10/22/24 History chewable tablet (Velphoro) temazepam 7.5 mg capsule (Restoril) 7.5 mg PO HS PRN Sleep 08/21/24 10/19/24 History vit B,C-folic ac 800 mcg-zinc 12.5 1 tab PO QAM 08/21/24 10/22/24 History mg-selen-D3 2,000 unit-vit E tablet (RenaPlex-D) dupilumab 300 mg/2 mL subcutaneous 300 mg subcut UD 09/02/24 10/22/24 History pen injector (Dupixent) insulin degludec 200 unit/mL (3 50 unit subcut HS 09/02/24 10/22/24 History mL) subcutaneous pen (Tresiba FlexTouch U-200 insulin) insulin lispro 100 unit/mL 5 - 10 unit subcut BID 09/02/24 10/22/24 History subcutaneous pen (Humalog KwikPen (U-100) Insulin) cinacalcet 30 mg tablet (Sensipar) 30 mg PO 3XWK 10/19/24 10/22/24 History lactulose 10 gram/15 mL oral 10 g PO DAILY PRN Constipation 10/19/24 10/22/24 History solution Patient History Medical History History of recent hospitalization admitted 09/17/24 @ [facility]--severely dehydrated, had low BP, very weak, low urine output (bloody urine) History of kidney stones Hx of traumatic brain injury Brain bleed 2021 after fall > "resolved", no issues since Tardive dyskinesia R/t hx Reglan use Wheelchair dependent AV fistula Left wrist > "not functioning" Thyroid cancer Recent dx 06/2024--"very large nodule"--having thyroid ultrasound for follow up 10/20/24 @ [facility] Station Medical History of COVID-19 09/2023 Hx of myocardial infarction 1998, 10/2023 Status post placement of implantable loop recorder Implanted 05/2024 Hypercholesteremia Diabetes Gastroparesis BPH w urinary obs/LUTS Nephrolithiasis Neuropathy "Severe" > mobility issues ESRD (end stage renal disease) Peritoneal dialysis catheter in place Sleep apnea CPAP Hx of bronchitis "Chronic" per patient, no noted acute flares/issues History of stroke 03/2024 > Left hand weakness Follows with [facility] neuro [place] Dialysis patient Peritoneal at home through the night Heart failure Echo 03/2024 Surgical History S/P cystoscopy with ureteral stent placement (09/10/24) mulitple, most recent 09/10/24 History of lithotripsy 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 Hx of vascular surgery Ballooning procedure to left leg History of esophagogastroduodenoscopy (EGD) History of colonoscopy History of heart artery stent 10/2023 > stent x1 History of cardiac cath (10/2023) 10/2023 > stent x1 Family History Father Diabetes Hypertension Heart disease Melanoma Mother Diabetes Hypertension Heart disease Social History Smoking Status: Never smoker Second Hand Exposure: No; Do You Dip or Chew Tobacco: No; Tobacco Cessation Education Requested by Patient: No Hx Alcohol Use: No Hx Substance Use: No Preferred Language: Polish Communication Ability: Effective Skiver Counter Required: No Beliefs That Will Affect Care: None marital status: Current Living Situation: Spouse Other Information That Helps Us Care for You: No Safety Concerns: Feels Safe At This Time Assistive Devices: CPAP, Glasses, Walker and Wheelchair Review of Systems Constitutional: no fever Eyes: no problem reported Ear, Nose, Mouth, Throat: no problem reported Respiratory: no cough and no dyspnea Cardiovascular: no chest pain Gastrointestinal: no abdominal pain, no nausea, no vomiting and no diarrhea/loose stools Integumentary: no rash Physical Exam Constitutional: not in distress Eyes: PERRL, conjunctivae normal, anicteric sclerae ENMT: external ear and nose normal, oropharynx normal Neck: trachea midline, no thyromegaly Respiratory: normal respiratory effort, lungs clear to auscultation Cardiovascular: RRR, no murmur, no edema Gastrointestinal (Abdomen): normal bowel sounds, soft, nontender, no hepatosplenomegaly Musculoskeletal: Extremities: no cyanosis and no clubbing Skin: no rashes, warm and dry Neurologic: awake; not confused Results & Data Vital Signs (Past 12 Hours) Vital Signs Temp Pulse Resp BP Pulse Ox O2 Del Method 10/22/24 12:31 36.6 C 69 20 113/95 100 Room Air Laboratory Results Laboratory Results Sodium 136 mmol/L (136-145) 10/22/24 12:09 Potassium 4.7 mmol/L (3.5-5.1) 10/22/24 12:09 Chloride 93 mmol/L (98-107) L 10/22/24 12:09 Carbon Dioxide 28 mmol/L (21-32) 10/22/24 12:09 Anion Gap 15 (3-11) H 10/22/24 12:09 BUN 50 mg/dl (6-23) H 10/22/24 12:09 Creatinine 9.71 mg/dl (0.6-1.4) H* 10/22/24 12:09 Est Cr Clr Drug Dosing 10.2 ml/min 10/22/24 12:09 eGFR 5.53 10/22/24 12:09 BUN/Creatinine Ratio 5.1 (10-20) L 10/22/24 12:09 Glucose 198 mg/dl (70-99(Fasting)) H 10/22/24 12:09 POC Glucose 144 mg/dl (70-99) H 10/22/24 15:47 Calcium 10.8 mg/dl (8.6-10.3) H 10/22/24 12:09 PG Care Time/CCT Total # of Minutes Spent Total Time Spent with Patient: Total time spent is greater than 50% in coordination of care (as documented) at patient's floor/unit and/or counseling patient: Coding Level of Care Code 97594 IN/OBS CONSULT LVL 5,80M Diagnoses ESRD (end stage renal disease) N18.6 Kidney stones, calcium oxalate N20.0
--- NOTE | 2024-10-22 16:06 | Fluoroscopy Report ---
FL retrograde includes kub CLINICAL HISTORY: B/L RETROGRADE, LASER, STENT COMPARISON STUDY: 09/10/2024 FLUOROSCOPY TIME: 119.9 seconds FLUOROSCOPY IMAGES: 4 EXPOSURE DOSE: 42.54 mGy FINDINGS: Bilateral ureteral stents appear to be in satisfactory positioning. Dilation of the renal c ollecting systems with calyceal blunting. IMPRESSION: Fluoroscopic assistance as above ACT 112: Negative or not required by law. Electronically signed by: Polo Jauregui M.D. 10/22/2024 3:45 PM
--- NOTE | 2024-10-22 16:10 | Anesthesiology Progress Note ---
Date of Service October 22, 2024 Anesthesia Post Procedure Vital Signs Vital Signs: Temp Pulse Pulse Resp BP BP Pulse Ox 10/22/24 16:05 68 17 124/70 98 10/22/24 15:55 73 21 137/79 100 10/22/24 15:45 73 17 136/79 100 10/22/24 15:38 36.2 C L 75 16 142/83 H 100 10/22/24 12:31 36.6 C 69 20 113/95 100 O2 Del Method O2 Flow Rate 10/22/24 16:05 Room Air 10/22/24 15:55 Room Air 10/22/24 15:45 Oxymask 2 10/22/24 15:38 Oxymask 6 10/22/24 12:31 Room Air Pain Intensity Penis: Pain Intensity: 5 Transfer of Care Handoff Completed per policy Notes Mental Status: alert / awake / arousable Patient Amnestic to Procedure: Yes Nausea / Vomiting: adequately controlled Pain: adequately controlled Airway Patency, RR, SpO2: stable & adequate BP & HR: stable & adequate Hydration State: stable & adequate Anesthetic Complications: no major complications apparent
[2024-10-22] MEDS ORDERED: PHARMACY GLYCEMIC MGMT CONSULT PRN (17:42)
[2024-10-22] MEDS ORDERED: GLUCOSE 40% GEL 15 GM TUBE PO PRN (18:00)
[2024-10-22] MEDS ORDERED: DEXTROSE 50% 50 ML SYRINGE IV PRN (18:00)
[2024-10-22] MEDS ORDERED: GLUCAGON FOR INJ 1 MG VIAL SQ PRN (18:00)
[2024-10-22] MEDS ORDERED: CARBOHYDRATES FOR HYPOGLYCEMIA PO PRN (18:00)
[2024-10-22] MEDS ORDERED: GLUCOSE 10 TAB/TUBE PO PRN (18:00)
[2024-10-22] MEDS: INSULIN ASPART PER UNIT CHARGE SC SCH (18:39)
[2024-10-22] MEDS: oxyCODONE/ACETAMINOPHEN 5mg/325mg TAB PO PRN (19:35)
[2024-10-22] MEDS: POLYETHYLENE (MIRALAX) 17 GM PACK PO PRN (19:36)
--- NOTE | 2024-10-22 20:17 | Hospitalist Consultation ---
Date of Consultation October 22, 2024 Assessment & Plan (1) Status post urological surgery: VTE / Pain / bowel management per primary urology team (2) Dialysis patient: Peritoneal dialysis per nephrology (3) Hx of myocardial infarction: Continue aspirin, clopidogrel, atorvastatin (4) Diabetes: HbA1C with AM labs Consult pharmacy for glycemic control during inpatient admission (5) Neuropathy: Continue gabapentin (6) Hypertension: Continue hydralazine Plan Thanks you for the consult, we will continue to follow along with you History of Present Illness Reason for Consultation: ESRD, CAD, HTN, DM Attending Physician: Darrius Ceron, II, DO History of Present Illness Samuel William is a 64 year old male POD#0 Cystoscopy with bilateral retrograde pyelogram and bilateral stent exchange performed by Dr Ceron earlier today. No concerns or questions from the patient. He is currently undergoing peritoneal dialysis when seen. Allergies Allergy/AdvReac Type Severity Reaction Status Date / Time metoclopramide [From Reglan] Allergy Severe Tardive Verified 10/22/24 12:29 dyskinesia scopolamine Allergy Severe Hallucinati Verified 10/22/24 12:29 ng Home Medications Medication Instructions Recorded Confirmed Type allopurinol 100 mg tablet 100 mg PO QAM 08/21/24 10/22/24 History alprazolam 0.25 mg tablet (Xanax) 0.25 mg PO DAILY PRN Anxiety 08/21/24 10/19/24 History aspirin 81 mg tablet,delayed 81 mg PO HS 08/21/24 10/22/24 History release atorvastatin 40 mg tablet 40 mg PO HS 08/21/24 10/22/24 History bisacodyl 10 mg rectal suppository 10 mg [place] DAILY PRN Constipation 08/21/24 History clopidogrel 75 mg tablet 75 mg PO QAM 08/21/24 10/22/24 History evolocumab 140 mg/mL subcutaneous 140 mg subcut UD 08/21/24 10/22/24 History pen injector (Gregor Delcid) finasteride 5 mg tablet 5 mg PO QAM 08/21/24 10/22/24 History gabapentin 100 mg capsule 300 mg PO QAM 08/21/24 10/22/24 History hydralazine 50 mg tablet 25 mg PO BID 08/21/24 10/22/24 History hydroxyzine HCl 25 mg tablet 25 mg PO QID PRN Itching 08/21/24 10/22/24 History magnesium oxide 400 mg (241.3 mg 400 mg PO BID 08/21/24 10/22/24 History magnesium) tablet nitroglycerin 0.4 mg sublingual 0.4 mg buccal UD PRN Chest Pain 08/21/24 10/19/24 History tablet oxycodone 5 mg tablet 5 mg PO BID PRN Pain 08/21/24 10/22/24 History pantoprazole 40 mg tablet,delayed 40 mg PO QAM 08/21/24 10/22/24 History release polyethylene glycol 3350 17 17 g PO DAILY PRN Constipation 08/21/24 10/19/24 History gram/dose oral powder (Miralax) potassium chloride 20 mEq 10 meq PO BID 08/21/24 10/22/24 History tablet,extended release senna-docusate sodium capsule 1 - 2 cap PO HS 08/21/24 10/19/24 History sucroferric oxyhydroxide 500 mg 500 mg PO BID 08/21/24 10/22/24 History chewable tablet (Velphoro) temazepam 7.5 mg capsule (Restoril) 7.5 mg PO HS PRN Sleep 08/21/24 10/19/24 History vit B,C-folic ac 800 mcg-zinc 12.5 1 tab PO QAM 08/21/24 10/22/24 History mg-selen-D3 2,000 unit-vit E tablet (RenaPlex-D) dupilumab 300 mg/2 mL subcutaneous 300 mg subcut UD 09/02/24 10/22/24 History pen injector (Dupixent) insulin degludec 200 unit/mL (3 50 unit subcut HS 09/02/24 10/22/24 History mL) subcutaneous pen (Tresiba FlexTouch U-200 insulin) insulin lispro 100 unit/mL 5 - 10 unit subcut BID 09/02/24 10/22/24 History subcutaneous pen (Humalog KwikPen (U-100) Insulin) cinacalcet 30 mg tablet (Sensipar) 30 mg PO 3XWK 10/19/24 10/22/24 History lactulose 10 gram/15 mL oral 10 g PO DAILY PRN Constipation 10/19/24 10/22/24 History solution Patient History Medical History (Updated 10/23/24 @ 06:43 by Nasim Pena MD) Hypertension History of recent hospitalization admitted 09/17/24 @ [facility]--severely dehydrated, had low BP, very weak, low urine output (bloody urine) History of kidney stones Hx of traumatic brain injury Brain bleed 2021 after fall > "resolved", no issues since Tardive dyskinesia R/t hx Reglan use Wheelchair dependent AV fistula Left wrist > "not functioning" Thyroid cancer Recent dx 06/2024--"very large nodule"--having thyroid ultrasound for follow up 10/20/24 @ [facility] Station Medical History of COVID-19 09/2023 Hx of myocardial infarction 1998, 10/2023 Status post placement of implantable loop recorder Implanted 05/2024 Hypercholesteremia Diabetes Gastroparesis BPH w urinary obs/LUTS Nephrolithiasis Neuropathy "Severe" > mobility issues ESRD (end stage renal disease) Peritoneal dialysis catheter in place Sleep apnea CPAP Hx of bronchitis "Chronic" per patient, no noted acute flares/issues History of stroke 03/2024 > Left hand weakness Follows with [facility] neuro [place] Dialysis patient Peritoneal at home through the night Heart failure Echo 03/2024 Surgical History (Updated 10/23/24 @ 06:40 by Nasim Pena MD) S/P cystoscopy with ureteral stent placement (09/10/24) mulitple, most recent 09/10/24 History of lithotripsy 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 Hx of vascular surgery Ballooning procedure to left leg History of esophagogastroduodenoscopy (EGD) History of colonoscopy History of heart artery stent 10/2023 > stent x1 History of cardiac cath (10/2023) 10/2023 > stent x1 Family History Father Diabetes Hypertension Heart disease Melanoma Mother Diabetes Hypertension Heart disease Social History Smoking Status: Never smoker Second Hand Exposure: No; Do You Dip or Chew Tobacco: No; Tobacco Cessation Education Requested by Patient: No Hx Alcohol Use: No Hx Substance Use: No Preferred Language: Colombian Communication Ability: Effective Fire Equipment Operator Required: No Beliefs That Will Affect Care: None marital status: Current Living Situation: Spouse Other Information That Helps Us Care for You: No Feels Safe at Home: Yes Safety Concerns: Feels Safe At This Time Assistive Devices: CPAP, Glasses, Walker and Wheelchair Review of Systems Review of Systems: All systems reviewed & are unremarkable except as noted in HPI & below Physical Exam Constitutional: WD/WN, vitals as above Eyes: + anicteric sclerae; normal pupil size ENMT: external ear and nose normal, oropharynx normal Respiratory: normal respiratory effort, lungs clear to auscultation Cardiovascular: Rate/Rhythm: regular rate and regular rhythm Heart Sounds: no murmur Extremities: normal capillary refill; no calf tenderness and no pedal edema Gastrointestinal (Abdomen): normal bowel sounds, soft, nontender, no hepatosplenomegaly Musculoskeletal: no cyanosis or clubbing, extremities motor strength 5/5 Skin: no rashes, warm and dry Neurologic: moves all extremities and awake; not confused Psychiatric: A+Ox3, euthymic affect Results & Data Results & Data Vital Signs (Past 12 Hours) Vital Signs Temp Pulse Pulse Resp BP BP Pulse Ox 10/22/24 19:40 36.3 C L 72 18 133/89 100 10/22/24 17:38 36 C L 64 20 132/75 100 10/22/24 17:05 10/22/24 17:02 36.5 C 64 20 132/75 10/22/24 17:02 36 C L 64 20 132/75 100 10/22/24 16:30 67 18 115/70 100 10/22/24 16:15 36.5 C 72 13 127/73 92 10/22/24 16:05 68 17 124/70 98 10/22/24 15:55 73 21 137/79 100 10/22/24 15:45 73 17 136/79 100 10/22/24 15:38 36.2 C L 75 16 142/83 H 100 10/22/24 12:31 36.6 C 69 20 113/95 100 Pulse Ox O2 Del Method O2 Del Method O2 Flow Rate O2 Flow Rate 10/22/24 19:40 Room Air 10/22/24 17:38 Room Air 10/22/24 17:05 100 Room Air 0 10/22/24 17:02 10/22/24 17:02 Room Air 10/22/24 16:30 Room Air 10/22/24 16:15 Room Air 10/22/24 16:05 Room Air 10/22/24 15:55 Room Air 10/22/24 15:45 Oxymask 2 10/22/24 15:38 Oxymask 6 10/22/24 12:31 Room Air Laboratory Results Abnormal lab results 10/22/24 10/22/24 10/22/24 Range/Units 12:09 12:29 15:47 Chloride 93 L (98-107) mmol/L Anion Gap 15 H (3-11) BUN 50 H (6-23) mg/dl Creatinine 9.71 H* (0.6-1.4) mg/dl BUN/Creatinine Ratio 5.1 L (10-20) Glucose 198 H (70-99(Fasting)) mg/dl POC Glucose 186 H 144 H (70-99) mg/dl Calcium 10.8 H (8.6-10.3) mg/dl 10/22/24 Range/Units 17:21 Chloride (98-107) mmol/L Anion Gap (3-11) BUN (6-23) mg/dl Creatinine (0.6-1.4) mg/dl BUN/Creatinine Ratio (10-20) Glucose (70-99(Fasting)) mg/dl POC Glucose 133 H (70-99) mg/dl Calcium (8.6-10.3) mg/dl PG Care Time/CCT Total # of Minutes Spent Total Time Spent with Patient: Total time spent is greater than 50% in coordination of care (as documented) at patient's floor/unit and/or counseling patient: Coding Level of Care Code 59360 IN/OBS CONSULT LVL 4,60M Diagnoses Status post urological surgery Z98.890 Dialysis patient Z99.2 Hx of myocardial infarction I25.2 Diabetes E11.9 Neuropathy G62.9 Hypertension I10
[2024-10-22] MEDS: MAGNESIUM OXIDE 400 MG TAB PO SCH (20:19)
[2024-10-22] MEDS: ATORVASTATIN 40 MG TAB PO SCH (20:19)
[2024-10-22] MEDS: ASPIRIN 81 MG ECTAB PO SCH (20:19)
[2024-10-22] MEDS: hydrALAZINE HCL 25 MG TAB PO SCH (20:19)
[2024-10-22] MEDS: LANTUS PER UNIT CHARGE SC SCH (20:27)
[2024-10-23] MEDS: MoRPHine SULFATE 2 MG/ML CARP IV PRN (03:45)
--- NOTE | 2024-10-23 07:52 | Hospitalist Progress Note ---
Date of Service October 23, 2024 Assessment & Plan (1) Status post urological surgery: Plan: Patient on peritoneal dialysis 2nd to diabetic kidney disease having large stone burden requiring admission for treatment by Urology. Notable largest stone 3.5cm of left UPJ s/p Cystoscopy with bilateral retrograde pyelogram and bilateral stent exchange. Left Ureteronephroscopy, Ureteral Dilation, Laser Destruction of Stone, Basket Extraction of the Stone, and Exchange of Stent Catheter by Dr Spring on 10/22 EBL 1cc 18Fr Coude in place, drain management per primary VTE / Pain / bowel management per primary urology team Notable Ca 10.8 and given stone hx will check Vitamin D. Is on cinacalcet for hyperparathyroidism as well as velphoro. Has been continued on cinacalcet but velphoro not formulary * Prior stone anaylsis from August w/ Calcium Oxalate Dihydrate ([place]) 10%Calcium Oxalate Monohydrate ([place]) 90%. Will check PTH pending Vitamin D level vs having f/u with PCP if dc today (2) Dialysis patient: Plan: Peritoneal dialysis per nephrology (3) Hx of myocardial infarction: Plan: Continue aspirin, clopidogrel, atorvastatin (4) Diabetes: Plan: HbA1C with AM labs Consult pharmacy for glycemic control during inpatient admission (5) Neuropathy: Plan: Continue gabapentin (6) Hypertension: Plan: Continue hydralazine Plan Thanks you for the consult, we will continue to follow along with you Admission and Anticipated Discharge Date Admission Date: October 22, 2024 Results & Data Results & Data Vital Signs (Past 12 Hours) Vital Signs Temp Pulse Pulse Resp BP Pulse Ox O2 Del Method 10/23/24 05:45 84 10/23/24 02:23 36.7 C 74 16 122/80 97 Room Air 10/22/24 22:54 36.3 C L 75 16 119/74 98 Room Air 10/22/24 21:44 81 10/22/24 20:38 Room Air PG Care Time/CCT Total # of Minutes Spent Total Time Spent with Patient: Total time spent is greater than 50% in coordination of care (as documented) at patient's floor/unit and/or counseling patient: Coding Diagnoses Status post urological surgery Z98.890 Dialysis patient Z99.2 Hx of myocardial infarction I25.2 Diabetes E11.9 Neuropathy G62.9 Hypertension I10
[2024-10-23 07:55] VITALS: RESP 18
--- NOTE | 2024-10-23 08:38 | Nephrology Progress Note ---
Date of Service October 23, 2024 Assessment & Plan (1) ESRD (end stage renal disease): Plan: * Will provide NCCPD therapy tonight as per outpatient orders if patient remains hospitalized * Continue RenaPlex, Velphoro and Sensipar as per outpatient orders * Monitor BMP during hospitalization (2) Kidney stones, calcium oxalate: Plan: * s/p cystoscopy with left ureteral nephroscopy and laser destruction of a stone 10/22/[address] Ceron Admission and Anticipated Discharge Date Admission Date: October 22, 2024 Subjective Mr. William was evaluated in his hospital room this morning. He had just completed NCCPD therapy and disconnected. 600 cc UF obtained. Effluent was clear/yellow. There were no complications w/ his PD therapy. He denied fever, abdominal pain or dyspnea. Dsouza catheter remains in place draining bloody urine Review of Systems Constitutional: no fever Eyes: no problem reported Ear, Nose, Mouth, Throat: no problem reported Respiratory: no cough and no dyspnea Cardiovascular: no chest pain Gastrointestinal: no abdominal pain, no nausea, no vomiting and no diarrhea/loose stools Integumentary: no rash Physical Exam Constitutional: not in distress Eyes: PERRL, conjunctivae normal, anicteric sclerae ENMT: external ear and nose normal, oropharynx normal Neck: trachea midline, no thyromegaly Respiratory: normal respiratory effort, lungs clear to auscultation Cardiovascular: RRR, no murmur, no edema Gastrointestinal (Abdomen): normal bowel sounds, soft, nontender, no hepatosplenomegaly Musculoskeletal: Extremities: no cyanosis and no clubbing Skin: no rashes, warm and dry Neurologic: awake; not confused Results & Data Vital Signs (Past 12 Hours) Vital Signs Temp Pulse Pulse Pulse Resp BP Pulse Ox 10/23/24 08:17 37.1 C 88 18 10/23/24 07:54 37.1 C 88 18 112/71 96 10/23/24 05:45 84 10/23/24 02:23 36.7 C 74 16 122/80 97 10/22/24 22:54 36.3 C L 75 16 119/74 98 10/22/24 21:44 81 10/22/24 20:38 O2 Del Method 10/23/24 08:17 10/23/24 07:54 Room Air 10/23/24 05:45 10/23/24 02:23 Room Air 10/22/24 22:54 Room Air 10/22/24 21:44 10/22/24 20:38 Room Air Laboratory Results Laboratory Results - last 24 hr 10/22/24 10/22/24 10/22/24 12:09 12:29 15:10 WBC RBC Hgb Hct MCV MCH MCHC RDW Std Deviation RDW Coeff of Tanya Plt Count MPV Immature Gran % (Auto) Neut % (Auto) Lymph % (Auto) [place] % (Auto) Eos % (Auto) Baso % (Auto) Neut # (Auto) Lymph # (Auto) [place] # (Auto) Eos # (Auto) Baso # (Auto) Immature Gran # (Auto) Sodium 136 Potassium 4.7 Chloride 93 L Carbon Dioxide 28 Anion Gap 15 H BUN 50 H Creatinine 9.71 H* Est Cr Clr Drug Dosing 10.2 eGFR 5.53 BUN/Creatinine Ratio 5.1 L Glucose 198 H POC Glucose 186 H Estimat Average Glucose Hemoglobin A1c Calcium 10.8 H Vitamin B12 25-OH Vitamin D Total Stone Source Pending Stone Weight Pending Stone Composition Pending Stone Composition 2 Pending 10/22/24 10/22/24 10/22/24 15:47 17:21 20:22 WBC RBC Hgb Hct MCV MCH MCHC RDW Std Deviation RDW Coeff of Tanya Plt Count MPV Immature Gran % (Auto) Neut % (Auto) Lymph % (Auto) [place] % (Auto) Eos % (Auto) Baso % (Auto) Neut # (Auto) Lymph # (Auto) [place] # (Auto) Eos # (Auto) Baso # (Auto) Immature Gran # (Auto) Sodium Potassium Chloride Carbon Dioxide Anion Gap BUN Creatinine Est Cr Clr Drug Dosing eGFR BUN/Creatinine Ratio Glucose POC Glucose 144 H 133 H 179 H Estimat Average Glucose Hemoglobin A1c Calcium Vitamin B12 25-OH Vitamin D Total Stone Source Stone Weight Stone Composition Stone Composition 2 10/23/24 10/23/24 08:00 08:09 WBC 7.09 RBC 3.56 L Hgb 10.4 L Hct 31.3 L MCV 87.9 MCH 29.2 MCHC 33.2 RDW Std Deviation 43.8 RDW Coeff of Tanya 13.4 Plt Count 157 MPV 10.3 Immature Gran % (Auto) 0.6 Neut % (Auto) 65.7 Lymph % (Auto) 15.0 [place] % (Auto) 12.1 Eos % (Auto) 5.6 Baso % (Auto) 1.0 Neut # (Auto) 4.66 Lymph # (Auto) 1.06 L [place] # (Auto) 0.86 H Eos # (Auto) 0.40 Baso # (Auto) 0.07 Immature Gran # (Auto) 0.04 Sodium Pending Potassium Pending Chloride Pending Carbon Dioxide Pending Anion Gap Pending BUN Pending Creatinine Pending Est Cr Clr Drug Dosing Pending eGFR Pending BUN/Creatinine Ratio Pending Glucose Pending POC Glucose 188 H Estimat Average Glucose Pending Hemoglobin A1c Pending Calcium Pending Vitamin B12 Pending 25-OH Vitamin D Total Pending Stone Source Stone Weight Stone Composition Stone Composition 2 PG Care Time/CCT Total # of Minutes Spent Total Time Spent with Patient: Total time spent is greater than 50% in coordination of care (as documented) at patient's floor/unit and/or counseling patient: Coding Level of Care Code 12037 SUB INP/OBS CARE 3/50MIN Diagnoses ESRD (end stage renal disease) N18.6 Kidney stones, calcium oxalate N20.0
[2024-10-23 08:48] LABS: Basophils # (auto) 0.07 K/uL (0.00-0.20); Eosinophils % (auto) 5.6 %; Hematocrit (blood only) 31.3 % (42.0-52.0); Hemoglobin 10.4 g/dl (14.0-18.0); Immature Granulocytes # (auto) 0.04 K/uL (0.01-0.20); Immature Granulocytes % (auto) 0.6 %; Lymphocytes # (auto) 1.06 K/uL (1.20-3.40); Mean Corpuscular Hemoglobin 29.2 pg (25.0-34.0); Mean Corpuscular Hgb Conc 33.2 g/dL (32.0-36.0); Mean Corpuscular Volume 87.9 fL (80.0-100.0); Mean Platelet Volume 10.3 fL (9.4-12.4); Monocytes # (auto) 0.86 K/uL (0.11-0.59); Monocytes % (auto) 12.1 %; Neutrophils # (auto) 4.66 K/uL (1.40-6.50); Neutrophils % (auto) 65.7 %; Platelet Count 157 K/uL (130-400); RDW Coefficient of Variation 13.4 % (11.5-14.5); RDW Standard Deviation 43.8 fL (36.4-46.3); Red Blood Count 3.56 M/uL (4.70-6.10); White Blood Count 7.09 K/ul (4.8-10.8)
--- NOTE | 2024-10-23 09:16 | CT Scan Report ---
CT abd pelvis wo con CLINICAL HISTORY: nephrolithiasis s/p stone treatment TECHNIQUE: Helical axial images of the abdomen and pelvis were obtained. Automated dose lowering tech niques and/or adjustment according to patient size were utilized for this exam. This exam was perfor med without intravenous contrast. CT DOSE: 1486.27 mGy.cm COMPARISON: None available at the time of this dictation. FINDINGS: Lower chest: Bibasilar atelectasis versus scarring is seen. Liver: Unremarkable. No focal lesions are seen. Gallbladder and biliary tree: No calcified gallstones. Normal caliber wall. No intra- or extrahepatic biliary ductal dilation. Pancreas: Unremarkable, no focal lesions. Spleen: A wedge-shaped hypodensity is seen in the spleen, of uncertain etiology. Adrenals: Bilateral mild myelolipoma is are seen. Kidneys and ureters: Bilateral renal stones are seen with bilateral ureteral stents. Bladder: Dsouza catheter is seen. Reproductive organs: Unremarkable. Bowel: Unremarkable. Lymph nodes Retroperitoneal: Subcentimeter lymph nodes are noted. Pelvic: Unremarkable. Mesenteric: Unremarkable. Peritoneum: Small amount of ascites is seen. It appears uncomplicated. Vessels: Atherosclerotic calcifications are seen. A peritoneal drain is seen with the tip in the righ t lower quadrant. Abdominal wall: Unremarkable. Bones: Mild degenerative changes are seen. IMPRESSION: 1. Small amount of ascites with peritoneal drain noted. There is a wedge-shaped hypodensity in the s uperior aspect of the spleen. This is nonspecific but should be correlated for splenic injury. 2. 1 diminutive kidneys bilaterally with nephroureteral stents and nonobstructive stones. ACT 112: Negative or not required by law. Electronically signed by: Jonathan Barnard M.D. 10/23/2024 9:14 AM
[2024-10-23 09:18] LABS: Calcium 9.7 mg/dl (8.6-10.3); Creatinine Clr Calc Pharmacy 10.2 ml/min
[2024-10-23 09:34] LABS: Estimated Average Glucose 137 mg/dl; Hemoglobin A1C 6.4 % (4.5-5.6)
[2024-10-23] MEDS: FINASTERIDE 5 MG TAB PO SCH (09:38)
[2024-10-23] MEDS: allopurinoL 100 MG TAB PO SCH (09:38)
[2024-10-23] MEDS: GABAPENTIN 300 MG CAP PO SCH (09:38)
[2024-10-23] MEDS: CLOPIDOGREL BISULFATE 75 MG TAB PO SCH (09:38)
[2024-10-23] MEDS: CINACALCET HCL 30 MG TAB PO SCH (09:38)
[2024-10-23] MEDS: PANTOprazole 40 MG TAB PO SCH (09:39)
[2024-10-23] MEDS: NEPHROCAPS PO SCH (09:39)
--- NOTE | 2024-10-23 10:44 | Urology Progress Note ---
Date of Service October 23, 2024 Assessment & Plan (1) Kidney stones, calcium oxalate: (2) Status post urological surgery: Plan: - Pt POD#1 s/p Cystoscopy with B/L retrograde pyelogram and bilateral stent exchange; left URS, Ureteral Dilation, Laser Destruction of Stone, Basket Extraction of the Stone, and Exchange of Stent Catheter - Doing well, progressing as expected - Afebrile, lab work reviewed - creatinine 9.65, no leukocytosis - Patient on peritoneal dialysis, continue as directed - Appreciate assistance from hospital medicine and nephrology - Having some stent discomfort, continue pain management - Dsouza in place, discussed with patient/ removal vs discharge with catheter - After discussion, patient will go home with catheter, will remove Saturday/Saturday - CT reviewed and discussed - Will continue with staged ureteroscopy and set up next stone treatment - Expected clinical course reviewed, all questions answered - Will arrange outpatient follow-up with our service Admission and Anticipated Discharge Date Admission Date: October 22, 2024 Subjective Patient seen and examined at bedside this morning. He is on the phone with his . Generally doing well. Did peritoneal dialysis today. He has some flank discomfort. Dsouza intact. No additional concerns. Review of Systems Constitutional: as per Subjective / HPI Genitourinary: + as per Subjective / HPI Physical Exam Constitutional: no acute distress Respiratory: normal respiratory effort; no respiratory distress and no labored breathing Musculoskeletal: Head/Neck/Chest: normocephalic Neurologic: moves all extremities and awake Psychiatric: Orientation: alert and oriented x 3 Genitourinary: Dsouza patent and draining blood tinged urine Results & Data Vital Signs (Past 12 Hours) Vital Signs Temp Pulse Pulse Pulse Resp BP Pulse Ox 10/23/24 08:45 10/23/24 08:17 37.1 C 88 18 10/23/24 07:54 37.1 C 88 18 112/71 96 10/23/24 05:45 84 10/23/24 02:23 36.7 C 74 16 122/80 97 10/22/24 22:54 36.3 C L 75 16 119/74 98 O2 Del Method 10/23/24 08:45 Room Air 10/23/24 08:17 10/23/24 07:54 Room Air 10/23/24 05:45 10/23/24 02:23 Room Air 10/22/24 22:54 Room Air PG Care Time/CCT Total # of Minutes Spent Total Time Spent with Patient: Total time spent is greater than 50% in coordination of care (as documented) at patient's floor/unit and/or counseling patient: Coding Level of Care Code None Diagnoses Kidney stones, calcium oxalate N20.0 Status post urological surgery Z98.890
--- NOTE | 2024-10-23 13:04 | Communication Note ---
Date of Service: October 23, 2024 Discussed with primary service, no need for hospitalist to see today. Nephrology managing peritoneal dialysis. Vit D acceptable and on cinacalcet for hyperparathyroidism/renal disease. Per nursing, just having some pain and given morphine x 1 this morning and planning for oxycodone at discharge. No acute issues/concerns from nursing staff either. 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 Should follow up with urology for definitive stone treatment and home wad impregnator for his ongoing dialysis/CKD. 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 A1c stable at 6.4 and can continue current home insulin/diabetic regimen with PCP/specialist follow up as already doing. Hospitalist service will sign off at this time. Please call with any questions/concerns.
--- NOTE | 2024-10-23 13:21 | Pharmacy Report ---
Pharmacy Glycemic Short Note 2 - Date of Service October 23, 2024 - Glycemic Short BSG Results (Last 24 hours): 10/22/24 10/22/24 10/22/24 15:47 17:21 20:22 Glucose POC Glucose 144 H 133 H 179 H 10/23/24 10/23/24 10/23/24 08:00 08:09 12:19 Glucose 185 H POC Glucose 188 H 176 H OUTPATIENT ANTIDIABETIC REGIMEN: * Tresiba 50 units SC HS * Humalog 5-10 units BIDM HbA1c: 6.4% on 10/23/24 ASSESSMENT: * 64 y/o M admitted for bilateral kidney stones yesterday for urological surgery today. Patient with history of Type 2 diabetes in setting of kidney failure and chronic peritoneal dialysis. * 50% of home basal dose given yesterday. Fasting BSG today was 188 mg/dl. Will continue with this dose again for tonight and re-assess basal dose tomorrow if patient stays but probably getting discharged today. * Novolog parameters ordered yesterday between stress of 1 and 2. This was tightened slightly this morning to stress of 2. PLAN FOR INPATIENT GLYCEMIC CONTROL: * Basal insulin * Lantus 25 units SQ HS * Bolus insulin * NovoLog per scale ACHS or Q6hrs while NPO * Goal Range: Low 110 mg/dL - High 140 mg/dL * Correction Factor: 20 mg/dL/unit * Nutritional / Prandial insulin per carb ratio of 1 unit per 7 grams CHO consumed
--- NOTE | 2024-10-23 14:26 | Discharge Summary ---
Date of Service October 23, 2024 Admission HPI Per Admitting Provider Patient here for procedure. No changes in medical issues. No major changes in urinary issues. Continued issues and concerns. No change in pain or discomfort. No severe fevers or chills. No chest pain or shortness of breath. Risks and benefits discussed at length for procedure. These include bleeding, infection, injury to surrounding tissues or organs, and risks associated with anesthesia. Patient and/or family states understanding and agrees to proceed. Consent and supporting information completed. Principal Diagnosis Bilateral nephrolithiasis Discharge Exam Constitutional no acute distress Respiratory normal respiratory effort; no respiratory distress and no labored breathing Gastrointestinal (Abdomen) Inspection/Auscultation: abdomen normal to inspection Musculoskeletal Head/Neck/Chest: normocephalic Neurologic moves all extremities and awake Psychiatric Orientation: alert and oriented x 3 Genitourinary Dsouza draining blood-tinged urine Discharge Data Allergies Allergy/AdvReac Type Severity Reaction Status Date / Time metoclopramide [From Reglan] Allergy Severe Tardive Verified 10/22/24 12:29 dyskinesia scopolamine Allergy Severe Hallucinati Verified 10/22/24 12:29 ng Consultations 10/22/24 12:43 Consult Hospitalist Routine 10/22/24 12:47 Consult Nephrology Routine Procedures Performed Operation Date: 10/22/24 13:25 Actual Procedures p Cystoscopy Ureteronephroscopy, Retrograde Pyelogram with Ureteral Dilation, Laser Destruction and Extraction of the Stone, Insertion of Stent Catheter Bilateral(Bilateral) - Darrius Ceron, DO Ordered Studies 10/22/24 [place] retrograde includes kub Routine 10/23/24 07:44 CT Abd and Pelvis [CT abd pelvis wo con] Urgent Hospital Course (1) Kidney stones, calcium oxalate: (2) Status post urological surgery: - Pt POD#1 s/p Cystoscopy with B/L retrograde pyelogram and bilateral stent exchange; left URS, Ureteral Dilation, Laser Destruction of Stone, Basket Extraction of the Stone, and Exchange of Stent Catheter - Doing well, progressing as expected - Afebrile, lab work reviewed - creatinine 9.65, no leukocytosis - Patient on peritoneal dialysis, continue as directed - Appreciate assistance from hospital medicine and nephrology - Having some stent discomfort, continue pain management - Dsouza in place, discussed with patient/ removal vs discharge with catheter - After discussion, patient will go home with catheter, will remove Saturday/Saturday - CT reviewed and discussed - Will continue with staged ureteroscopy and set up next stone treatment - Expected clinical course reviewed, all questions answered - Will arrange outpatient follow-up with our service Total Time Total Time Spent Total Time Spent (In Minutes): 29 Discharge Plan Discharge Items Patient Disposition: Home - Self-Care Reason For Visit: BILATERAL OBSTRUCTING STONES. Discharge Diagnosis: Bilateral obstructing stones Activity: Per Instructions section Lifting: Gradually increase as tolerated Bathing Comment: Okay to shower after discharge Sexual Activity: Wait until after follow-up appointment Exercise/Sports: Wait until after follow-up appointment Driving/Machine Use: No driving while taking prescription pain medication Non-emergency contact: Surgeon and Urologist Call non-emergency contact if: your pain is not controlled and your temperature is above 101 Follow-up/Referrals: Vishal Oshea [Primary Care Provider] - Diet: Carb Consistent or DM2 and Dialysis Renal Addtl Attending Provider Instructions: Please take all medications as prescribed and keep all follow-ups as scheduled. Please call our office at [phone] with any questions, concerns or need to reschedule appointments for any reason. We are happy to assist you. While you have a ureteral stent in place: Some discomfort is normal. Certain movements may trigger pain or a feeling th at you need to urinate. You may also feel mild soreness or pressure before or during urination. These symptoms should go away a few days after the stent is removed. Your urine may be slightly pink or red. This is due to bleeding caused by minor irritation from the stent. This may happen on and off while you have the stent, it is not harmful and is to be expected. Medication to help minimize discomfort or bladder spasms, or to prevent infection may be prescribed. Take this as directed. Drink plenty of fluids to help flush out your urinary tract. If you go home with a catheter, wash with soapy water and a fresh washcloth twice daily. We recommend mild bar soap such as Dial or Dove. When to call [facility] at [phone]: Your urine contains heavy blood clots You are constantly leaking urine Fever of 101F or higher, chills, nausea, or vomiting Your pain is not relieved with medication The end of the stent comes out of your urethra Pending Studies at Discharge: No Stand-Alone Forms: My [facility] Medications and DC Order Prescriptions: New oxycodone-acetaminophen 7.5-325 mg tablet 1 tab PO Q8H PRN (Reason: pain) Qty: 10 0RF Continued atorvastatin 40 mg tablet 40 mg PO HS Repatha SureClick 140 mg/mL pen injector 140 mg subcut UD Patient Comments: every other week finasteride 5 mg tablet 5 mg PO QAM hydralazine 50 mg tablet 25 mg PO BID pantoprazole 40 mg tablet,delayed release (DR/EC) 40 mg PO QAM magnesium oxide 400 mg (241.3 mg magnesium) tablet 400 mg PO BID hydroxyzine HCl 25 mg tablet 25 mg PO QID PRN (Reason: Itching) gabapentin 100 mg capsule 300 mg PO QAM Patient Comments: only takes 100mg at HS RenaPlex-D 800 mcg-12.5 mg -2,000 unit tablet 1 tab PO QAM allopurinol 100 mg tablet 100 mg PO QAM clopidogrel 75 mg tablet 75 mg PO QAM nitroglycerin 0.4 mg tablet, sublingual 0.4 mg buccal UD PRN (Reason: Chest Pain) bisacodyl 10 mg suppository 10 mg SD DAILY PRN (Reason: Constipation) potassium chloride 20 mEq tablet extended release 10 meq PO BID aspirin 81 mg tablet,delayed release (DR/EC) 81 mg PO HS Velphoro 500 mg tablet,chewable 500 mg PO BID alprazolam [Xanax] 0.25 mg tablet 0.25 mg PO DAILY PRN (Reason: Anxiety) oxycodone 5 mg tablet 5 mg PO BID PRN (Reason: Pain) temazepam [Restoril] 7.5 mg capsule 7.5 mg PO HS PRN (Reason: Sleep) senna-docusate sodium Capsule 1 - 2 cap PO HS polyethylene glycol 3350 [Miralax] 17 gram/dose powder 17 g PO DAILY PRN (Reason: Constipation) insulin lispro [Humalog KwikPen Insulin] 100 unit/mL Insulin Pen 5 - 10 unit SUBCUT BID Patient Comments: with lunch and dinner insulin degludec [Tresiba FlexTouch U-200] 200 unit/mL (3 mL) Insulin Pen 50 unit SUBCUT HS Dupixent Pen 300 mg/2 mL Pen Injector 300 mg SUBCUT UD Patient Comments: every other week on mondays cinacalcet [Sensipar] 30 mg Tablet 30 mg PO 3XWK lactulose 10 gram/15 mL Solution 10 g PO DAILY PRN (Reason: Constipation) No Action cephalexin 500 mg capsule 500 mg PO BID 7 Days Qty: 14 0RF Discharge Orders: Discharge Order (Routine); Ordered 10/23/24 Ordered By: Giselle Lawson Admission Data Admit Date/Time: 10/22/24 12:43 Attending Provider: Darrius Ceron Admit Provider: Darrius Ceron Primary Care Provider: Vishal Oshea Other Providers: Garrett Flores; Lelo Peguero; Nasim Tracy; Cj Kuo; Aroldo London; Carlos Zeng; Danni Claros; Becky Godfrey; Kristen Conklin; Andie Martin; Magen Soriano; Mikayla Venegas; Elan Payan; Nasim Pena; Dewey Mcdaniels; Yadiel Rossi; Angelita Alfaro; Merced Russell E; Merced Adan E; Teressa Sauceda E; Kimberly Oliver N; Enrrique Aguilera; David Mesa; King Poe; Zach Masterson; Armida Vazquez; Maryana Alexandre; Holly Lopez; Timi Tanner; Víctor Bauer; Cj Valerio; Aroldo Tapia; Leanne Swift; Flory Cuellar; Bonny Hall; Ash Barnhart; Jensen Rose; Eliseo Toledo; Wallace Villalpando; Anel Bourne; Jimmie Amaya; Kaitlynn Chavez; Darrius Moon; Bri Wilson Kevin C.; Eloisa Paiz Other Interventions: Discharge Summary Assessment (RN) Last Done: 10/23/24 12:24 Coding Level of Care Code 29532 IN/OBS DISCH 30 MIN/LESS Diagnoses Kidney stones, calcium oxalate N20.0 Status post urological surgery Z98.890
[2024-10-23 17:53] VITALS: BP 125/82; PULSE 96; TEMP 97.5; O2SAT 94
== END 2024-10-23 17:58 | disposition home or self-care (01) ==
LOC: ASU 11:57 → 2N 11:57

== ENCOUNTER 2024-11-09 10:50 | Observation (INO) ==
--- NOTE | 2024-10-30 11:00 | Anesthesiology Consultation ---
Date of Service October 30, 2024 Assessment & Plan Chart Review Chart Review: Acceptable Risk for Surgery and Patient NOT seen in Pre Admission Testing History Surgery Operation Date: 11/09/24 09:20 Proposed Procedures p Cystoscopy, Ureteronephroscopy, Retrograde Pyelogram, with Possible Ureteral Dilation, Laser Destruction or Extraction of the Stone, Insertion or Exchange of Stent Catheter - Lynne - Darrius Ceron, Height/Weight Height: 6 ft Weight: 113.852 kg Allergies Allergy/AdvReac Type Severity Reaction Status Date / Time metoclopramide [From Reglan] Allergy Severe Tardive Verified 10/29/24 15:33 dyskinesia scopolamine Allergy Severe Hallucinati Verified 10/29/24 15:33 ng Medications Home Medications Medication Instructions Recorded Confirmed Last Taken allopurinol 100 mg tablet 100 mg PO QAM 08/21/24 10/29/24 10/21/24 12:00 alprazolam 0.25 mg tablet (Xanax) 0.25 mg PO DAILY PRN Anxiety 08/21/24 10/29/24 Unknown aspirin 81 mg tablet,delayed 81 mg PO HS 08/21/24 10/29/24 10/21/24 12:00 release atorvastatin 40 mg tablet 40 mg PO HS 08/21/24 10/29/24 10/21/24 22:00 bisacodyl 10 mg rectal suppository 10 mg [place] DAILY PRN Constipation 08/21/24 10/29/24 Unknown clopidogrel 75 mg tablet 75 mg PO QAM 08/21/24 10/29/24 10/20/24 12:00 evolocumab 140 mg/mL subcutaneous 140 mg subcut UD 08/21/24 10/29/24 10/20/24 14:00 pen injector (Gregor Delcid) finasteride 5 mg tablet 5 mg PO QAM 08/21/24 10/29/24 10/21/24 12:00 gabapentin 100 mg capsule 300 mg PO QAM 08/21/24 10/29/24 10/22/24 10:00 hydralazine 50 mg tablet 25 mg PO BID 08/21/24 10/29/24 10/22/24 10:00 hydroxyzine HCl 25 mg tablet 25 mg PO QID PRN Itching 08/21/24 10/29/24 10/21/24 12:00 magnesium oxide 400 mg (241.3 mg 400 mg PO BID 08/21/24 10/29/24 10/21/24 22:00 magnesium) tablet nitroglycerin 0.4 mg sublingual 0.4 mg buccal UD PRN Chest Pain 08/21/24 10/29/24 Unknown tablet oxycodone 5 mg tablet 5 mg PO BID PRN Pain 08/21/24 10/29/24 10/21/24 12:00 pantoprazole 40 mg tablet,delayed 40 mg PO QAM 08/21/24 10/29/24 10/22/24 10:00 release polyethylene glycol 3350 17 17 g PO DAILY PRN Constipation 08/21/24 10/29/24 09/08/24 14:00 gram/dose oral powder (Miralax) senna-docusate sodium capsule 1 - 2 cap PO HS 08/21/24 10/29/24 09/08/24 22:00 sucroferric oxyhydroxide 500 mg 500 mg PO BID 08/21/24 10/29/24 10/21/24 17:00 chewable tablet (Velphoro) temazepam 7.5 mg capsule (Restoril) 7.5 mg PO HS PRN Sleep 08/21/24 10/29/24 Unknown vit B,C-folic ac 800 mcg-zinc 12.5 1 tab PO QAM 08/21/24 10/29/24 10/21/24 12:00 mg-selen-D3 2,000 unit-vit E tablet (RenaPlex-D) dupilumab 300 mg/2 mL subcutaneous 300 mg subcut UD 09/02/24 10/29/24 10/20/24 22:00 pen injector (Dupixent) insulin degludec 200 unit/mL (3 50 unit subcut HS 09/02/24 10/29/24 10/21/24 22:00 mL) subcutaneous pen (Tresiba FlexTouch U-200 insulin) insulin lispro 100 unit/mL 5 - 10 unit subcut BID 09/02/24 10/29/24 10/21/24 21:00 subcutaneous pen (Humalog KwikPen (U-100) Insulin) cinacalcet 30 mg tablet (Sensipar) 30 mg PO 3XWK 10/19/24 10/29/24 10/21/24 12:00 lactulose 10 gram/15 mL oral 10 g PO DAILY PRN Constipation 10/19/24 10/29/24 10/21/24 22:00 solution cephalexin 500 mg capsule 500 mg PO BID 7 days #14 caps 10/23/24 10/29/24 Unknown oxycodone-acetaminophen 7.5 mg-325 1 tab PO Q8H PRN pain #10 tabs 10/23/24 10/29/24 Unknown mg tablet potassium chloride 10 mEq 10 meq PO BID 10/29/24 10/29/24 Unknown tablet,extended release Past Medical History Medical History Cervical spinal stenosis Anxiety Hypertension History of recent hospitalization admitted 09/17/24 @ [facility]--severely dehydrated, had low BP, very weak, low urine output (bloody urine) History of kidney stones Hx of traumatic brain injury Brain bleed 2021 after fall > "resolved", no issues since Tardive dyskinesia R/t hx Reglan use Wheelchair dependent AV fistula Left wrist > "not functioning" Thyroid cancer Recent dx 06/2024--"very large nodule" repeat ultrasound 10/20/2024, awaiting endocrinology consult 11/2024 History of COVID-19 09/2023 Hx of myocardial infarction 1998, 10/2023 Status post placement of implantable loop recorder Implanted 05/2024 Hypercholesteremia Diabetes Gastroparesis BPH w urinary obs/LUTS Nephrolithiasis Neuropathy "Severe" > mobility issues ESRD (end stage renal disease) Dr Soto, [facility], currently peritoneal dialysis at home every night Peritoneal dialysis catheter in place Sleep apnea CPAP Hx of bronchitis "Chronic" per patient, no noted acute flares/issues History of stroke 03/2024 > Left hand weakness Follows with [facility] neuro [place] Dialysis patient Peritoneal at home through the night, follows with Dr Soto at [facility] Heart failure Echo 06/2024 Past Family History Family History Father Diabetes Hypertension Heart disease Melanoma Mother Diabetes Hypertension Heart disease Past Surgical History Surgical History S/P cystoscopy with ureteral stent placement (09/10/24) rick, most recent 10/22/2024 History of lithotripsy 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
[~2024-11-09 10:50] MED LIST changes: +LIDOCAINE 2% 2 ML VIAL/AMP(20MG/ML) INFIL ONE; +MIDAZOLAM HCL 1 MG/ML 2ML VIAL ONE; +PROPOFOL IV EMULSION 10 MG/ML 20 ML VIAL IV ONE; -SODIUM CHLORIDE 0.9% 1000ML IV SCH; -ceFAZolin 2000MG 2,000 MG/15 ML SYR IV SCH; +fentaNYL citrate PF 100 MCG/2 ML VIAL ONE
--- NOTE | 2024-11-09 11:05 | History & Physical Bridge Note ---
Date of Service November 09, 2024 History & Physical Bridge Note I have examined the patient, reviewed the History & Physical and in the interval since the performance of the History & Physical I have noted the following changes of clinical significance: no changes noted
[2024-11-09] MEDS: SODIUM CHLORIDE 0.9% 1,000 ML IV SCH (11:15)
[2024-11-09] MEDS: INSULIN HUMAN REGULAR PER UNIT 5 UNITS in SYRINGE 0 ML IV STA (11:30)
[2024-11-09] MEDS ORDERED: ATROPINE SULFATE 0.1 MG/ML 10ML SYR IV PRN (11:58)
[2024-11-09] MEDS ORDERED: ePHEDrine sulfate 50 MG/ML AMP IV PRN (11:58)
[2024-11-09] MEDS ORDERED: NALOXONE HCL 0.4 MG/1 ML VIAL/CARP IV PRN (11:58)
[2024-11-09] MEDS ORDERED: LABETALOL HCL IV 5 MG/ML 20ML IV PRN (11:58)
[2024-11-09] MEDS ORDERED: FLUMAZENIL 0.1 MG/1 ML 10 ML VIAL IV PRN (11:58)
[2024-11-09] MEDS: ceFAZolin 3000MG 3,000 MG/72.5 ML BAG IV SCH (12:31)
[2024-11-09] MEDS ORDERED: ROCURONIUM BROMIDE 10 MG/ML 5 ML VIAL IV ONE (12:47)
[2024-11-09] MEDS ORDERED: ONDANSETRON INJ 2 MG/ML 2 ML VIAL ONE (12:47)
[2024-11-09] MEDS ORDERED: SUGAMMADEX SODIUM 200 MG/2 ML VIAL IV ONE (13:04)
[2024-11-09] MEDS ORDERED: LABETALOL HCL IV 5 MG/ML 20ML IV ONE (13:24)
--- NOTE | 2024-11-09 13:56 | Operative Report ---
PG Post Operative Report Pre & Post Diagnosis Operation Date: 11/09/24 12:05 Pre-Op Diagnosis: Nephrolithiasis Post-Op Diagnosis: Nephrolithiasis I identified the patient and participated in the time-out.: Yes Procedure Operation Date: 11/09/24 12:05 Actual Procedures Cystoscopy with Left Ureteral dilation and Left Retrograde pyelogram. Right Ureteronephroscopy, Retrograde Pyelogram, Ureteral Dilation, Laser Destruction and Basket Extraction of the Stone, Insertion of Stent Catheter - Right(Not Applicable) - Darrius Ceron DO Surgeon Darrius Ceron, II, DO Strap Cutter None Estimated Blood Loss 1 Findings Consistent with Post-Op Diagnosis Extensive severe stone disease bilaterally. Mild narrowing at UO on left. Dilated. Innumerable stones with large approx 3.5 cm stone of the Right Upper pole kidney. Extensive Stones destroyed to dust and small fragments and larger fragments removed. Specimens Stone Fragments - Right renal Drains 7 Fr x 28 cm Right 20 Fr Coude Anesthesia Type General Complications none Disposition Disposition: Recovery Room Indications Patient with bothersome stones with severe bilateral burden with ESRD. Risks and benefits discussed at length. Description of Procedure Patient was consented and brought back to the operating room. Patient was placed under anesthesia in the supine position and moved to the dorsal lithotomy position. Patient was prepped and draped in the regular sterile fashion. A time out was completed identifying the correct patient and procedure. A 30degree Cystoscope was placed into the bladder and the entire bladder was examined. The UO's were identified. The stents on each side were grasped and partially removed. The wires were placed through the stents and the stents were then fully removed. The UO was cannulized with a catheter and a retrograde pyelogram was completed. A significant amount of stone was visualized on the right side within the right upper pole renal pelvis. On the left there wasmild narrowing at the UO, but no significant debris or other abnormal obstruction. A wire was then placed bilaterally. The distal ureter on the left was dilated. Good drainage was noted. The wire was removed. No major issues or problems. The wire on the right was maintained. A ureteral access sheath and second safety wire was placed. The UPJ/Proximal ureter had severe inflammation and areas of stricture likely from chronic inflammation and stone disease. These were dilated. The scope was then able to advance the flexible ureteroscope was taken into the ureter. The entire ureter and renal pelvis were examined. The stones were identified. Majority of the upper pole and the UPJ and renal pelvis were filled in with a large staghorn stone. Extensive additional stone disease were discovered. A laser fiber was selected and the stones were pulverized to dust and small fragments. Larger fragments were grasped and removed and sent for analysis. The entire area was once again examined. No residual large fragments or areas of concern were noted. There was significant debris that drained from the upper pole calyx once the large staghorn was able to be freed and the chambers accessed. This did limit visualization. A large amount of debris had also been created due to fragmenting and dusting the stones. As the visualization decreased no larger stones were able to be discovered but the individual calyx's were hard to fully access. At this point it was decided to place a stent and allow drainage of the debris over time. The scope was slowly removed with the wire left in place. Contrast was placed through the scope for a pyelogram to assist in stent placement. The entire ureter was examined as the scope was slowly removed. No obstructions or other areas of concern were noted. Extensive stone disease was treated. A majority of the larger stones as well as a majority of the bulk of the stones were able to be removed and cleared. With the wire in place, a 7 Fr Double J stent was placed. It was confirmed with fluoroscopy. With the stents in place, the bladder was emptied. The scope was removed. An 20 [place] Dsouza catheter was then placed. The patient was cleaned, aroused from anesthesia, and transferred to the pacu in stable condition having tolerated the procedure well with no complications. I was present and participated in all aspects of the procedure. The patient will be monitored in the PACU until transferred. Will observe overnight. Plan to consult nephrology and medicine for medical management and management of end-stage renal disease. Will plan to move forward with reassessment and imaging in the next few weeks with follow-up afterwards to finalize plans for stone treatment I attest to the content of the Intraoperative Record and any orders documented therein. Any exceptions are noted below.
[2024-11-09] MEDS: fentaNYL citrate PF 100 MCG/2 ML VIAL IV PRN (14:10)
[2024-11-09] MEDS: HYDROmorphone INJ 0.5 MG/0.5 ML SYR IV PRN (14:40)
[2024-11-09] MEDS: ONDANSETRON INJ 2 MG/ML 2 ML VIAL IV PRN ×2 (14:51→19:57)
[2024-11-09] MEDS: PROMETHAZINE HCL 6.25 MG in SODIUM CHLORIDE 0.9% 50 ML IV PRN (15:40)
--- NOTE | 2024-11-09 16:24 | Fluoroscopy Report ---
FL retrograde includes kub CLINICAL HISTORY: B/L RETROGRADE AND STENT PLACEMENT COMPARISON STUDY: CT of the abdomen and pelvis October 23, 2024. FLUOROSCOPY TIME: 1 minute and 23 seconds. Ka,r: 31.42 mGy FLUOROSCOPIC IMAGES: 3 FINDINGS: Fluoroscopy was provided during cystoscopy and bilateral retrograde pyelograms with right-s ided lithotripsy and right ureteral stent placement. Peritoneal dialysis catheter is incidentally not ed. IMPRESSION: Fluoroscopy provided during cystoscopy, bilateral retrograde pyelograms and right ureter al stent placement. ACT 112: Negative or not required by law. Electronically signed by: Abdirizak Castillo M.D. 11/09/2024 4:23 PM
--- NOTE | 2024-11-09 16:49 | Anesthesiology Progress Note ---
Date of Service November 09, 2024 Anesthesia Post Procedure Vital Signs Vital Signs: Temp Pulse Pulse Resp BP Pulse Ox O2 Del Method 11/09/24 16:30 65 22 103/70 96 Room Air 11/09/24 16:20 63 19 100/66 94 Room Air 11/09/24 16:10 65 21 107/66 95 Room Air 11/09/24 16:00 64 20 105/72 96 Room Air 11/09/24 15:50 72 18 98/72 L 100 Room Air 11/09/24 15:40 70 20 97/64 L 100 Room Air 11/09/24 15:30 66 20 124/75 100 Room Air 11/09/24 15:20 72 22 115/74 100 Room Air 11/09/24 15:10 64 23 105/76 99 Room Air 11/09/24 15:00 68 23 104/71 99 Room Air 11/09/24 14:50 36.9 C 85 22 125/76 98 Room Air 11/09/24 14:40 69 23 138/97 100 Oxymask 11/09/24 14:30 64 19 130/98 100 Oxymask 11/09/24 14:20 64 23 142/88 H 100 Oxymask 11/09/24 14:10 66 26 H 146/97 H 100 Oxymask 11/09/24 14:01 36 C L 49 L 17 156/98 H 100 Oxymask 11/09/24 11:37 36.6 C 99 H 22 112/70 99 Room Air O2 Flow Rate 11/09/24 16:30 11/09/24 16:20 11/09/24 16:10 11/09/24 16:00 11/09/24 15:50 11/09/24 15:40 11/09/24 15:30 11/09/24 15:20 11/09/24 15:10 11/09/24 15:00 11/09/24 14:50 11/09/24 14:40 4 11/09/24 14:30 4 11/09/24 14:20 4 11/09/24 14:10 6 11/09/24 14:01 6 11/09/24 11:37 Pain Intensity Penis: Pain Intensity: 6 Right Flank: Pain Intensity: 9 Transfer of Care Handoff Completed per policy Notes Mental Status: alert / awake / arousable and participated in evaluation Patient Amnestic to Procedure: Yes Nausea / Vomiting: adequately controlled Pain: adequately controlled Airway Patency, RR, SpO2: stable & adequate BP & HR: stable & adequate Hydration State: stable & adequate Anesthetic Complications: no major complications apparent and Pt Satisfied with anesthetic care
--- NOTE | 2024-11-09 17:34 | Nephrology Consultation ---
Date of Consultation November 09, 2024 Assessment & Plan (1) ESRD (end stage renal disease): * Will provide NCCPD therapy tonight as per outpatient orders. Dialysis nurse manager commission was notified and orders placed in EMR. * Continue RenaPlex, Velphoro and Sensipar as per outpatient orders * Stat BMP, CBC ordered * Monitor BMP during hospitalization (2) Kidney stones, calcium oxalate: * s/p cystoscopy with right ureteral nephroscopy and laser destruction of a stone 11/09/[address] Ceron History of Present Illness Reason for Consultation: ESKD on NCCPD therapy Attending Physician: Darrius Ceron, II, DO History of Present Illness Mr. William is a 64-year-old white male who is seen at the request of [facility]rology to provide NCCPD therapy. Information for the HPI is obtained from direct patient interview and review of the EMR. HPI summarized as follows: Mr. iWlliam resides in [place], [place]. He has ESKD due to diabetic kidney disease. He is on NCCPD therapy under the direction of Dr. Maria Elena Aviles (PD Rx: 5 exchanges per night 3 L fill volume combination 1.5/2.5 Delflex, fill 10 minutes dwell 90 minutes drain 20 minutes. No daytime dwell. EDW 112.5 kg). His medical history is significant for AODM, HTN, MCA CVA, ASCVD, hypercholesterolemia, obesity, traumatic brain injury following a fall, tardive dyskinesia, wheelchair-bound status, and kidney stones. Earlier today Mr. William underwent cystoscopy with right ureteral nephroscopy and laser destruction of a stone and placement of a stent. He is being admitted overnight for monitoring and will require peritoneal dialysis. Allergies Allergy/AdvReac Type Severity Reaction Status Date / Time metoclopramide [From Reglan] Allergy Severe Tardive Verified 11/09/24 11:21 dyskinesia scopolamine Allergy Severe Hallucinati Verified 11/09/24 11:21 ng phenazopyridine AdvReac not to Verified 11/09/24 11:50 [From Pyridium] take due to kidney failure Home Medications Medication Instructions Recorded Confirmed Type allopurinol 100 mg tablet 100 mg PO QAM 08/21/24 11/09/24 History alprazolam 0.25 mg tablet (Xanax) 0.25 mg PO DAILY PRN Anxiety 08/21/24 11/09/24 History aspirin 81 mg tablet,delayed 81 mg PO HS 08/21/24 11/09/24 History release atorvastatin 40 mg tablet 40 mg PO HS 08/21/24 11/09/24 History bisacodyl 10 mg rectal suppository 10 mg OR DAILY PRN Constipation 08/21/24 11/09/24 History clopidogrel 75 mg tablet 75 mg PO QAM 08/21/24 11/09/24 History evolocumab 140 mg/mL subcutaneous 140 mg subcut UD 08/21/24 11/09/24 History pen injector (Gregor Delcid) finasteride 5 mg tablet 5 mg PO QAM 08/21/24 11/09/24 History gabapentin 100 mg capsule 300 mg PO QAM 08/21/24 11/09/24 History hydralazine 50 mg tablet 25 mg PO BID 08/21/24 11/09/24 History hydroxyzine HCl 25 mg tablet 25 mg PO QID PRN Itching 08/21/24 11/09/24 History magnesium oxide 400 mg (241.3 mg 400 mg PO BID 08/21/24 11/09/24 History magnesium) tablet nitroglycerin 0.4 mg sublingual 0.4 mg buccal UD PRN Chest Pain 08/21/24 11/09/24 History tablet oxycodone 5 mg tablet 5 mg PO BID PRN Pain 08/21/24 11/09/24 History pantoprazole 40 mg tablet,delayed 40 mg PO QAM 08/21/24 11/09/24 History release polyethylene glycol 3350 17 17 g PO DAILY PRN Constipation 08/21/24 11/09/24 History gram/dose oral powder (Miralax) senna-docusate sodium capsule 1 - 2 cap PO HS 08/21/24 10/29/24 History sucroferric oxyhydroxide 500 mg 500 mg PO BID 08/21/24 11/09/24 History chewable tablet (Velphoro) temazepam 7.5 mg capsule (Restoril) 7.5 mg PO HS PRN Sleep 08/21/24 11/09/24 History vit B,C-folic ac 800 mcg-zinc 12.5 1 tab PO QAM 08/21/24 11/09/24 History mg-selen-D3 2,000 unit-vit E tablet (RenaPlex-D) dupilumab 300 mg/2 mL subcutaneous 300 mg subcut UD 09/02/24 11/09/24 History pen injector (Dupixent) insulin degludec 200 unit/mL (3 50 unit subcut HS 09/02/24 11/09/24 History mL) subcutaneous pen (Tresiba FlexTouch U-200 insulin) insulin lispro 100 unit/mL 5 - 10 unit subcut BID 09/02/24 11/09/24 History subcutaneous pen (Humalog KwikPen (U-100) Insulin) cinacalcet 30 mg tablet (Sensipar) 30 mg PO 3XWK 10/19/24 11/09/24 History lactulose 10 gram/15 mL oral 10 g PO DAILY PRN Constipation 10/19/24 11/09/24 History solution oxycodone-acetaminophen 7.5 mg-325 1 tab PO Q8H PRN pain #10 tabs 10/23/24 11/09/24 Rx mg tablet potassium chloride 10 mEq 10 meq PO BID 10/29/24 11/09/24 History tablet,extended release Patient History Medical History Cervical spinal stenosis Anxiety Hypertension History of recent hospitalization admitted 09/17/24 @ [facility]--severely dehydrated, had low BP, very weak, low urine output (bloody urine) History of kidney stones Hx of traumatic brain injury Brain bleed 2021 after fall > "resolved", no issues since Tardive dyskinesia R/t hx Reglan use Wheelchair dependent AV fistula Left wrist > "not functioning" Thyroid cancer Recent dx 06/2024--"very large nodule" repeat ultrasound 10/20/2024, awaiting endocrinology consult 11/2024 History of COVID-19 09/2023 Hx of myocardial infarction 1998, 10/2023 Status post placement of implantable loop recorder Implanted 05/2024 Hypercholesteremia Diabetes Gastroparesis BPH w urinary obs/LUTS Nephrolithiasis Neuropathy "Severe" > mobility issues ESRD (end stage renal disease) Dr Soto, [facility], currently peritoneal dialysis at home every night Peritoneal dialysis catheter in place Sleep apnea CPAP Hx of bronchitis "Chronic" per patient, no noted acute flares/issues History of stroke 03/2024 > Left hand weakness Follows with [facility] Dialysis patient Peritoneal at home through the night, follows with Dr Soto at [facility] Heart failure Echo 06/2024 Surgical History S/P cystoscopy with ureteral stent placement (09/10/24) rick, most recent 10/22/2024 History of lithotripsy 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 Hx of vascular surgery Ballooning procedure to left leg History of esophagogastroduodenoscopy (EGD) History of colonoscopy History of heart artery stent 10/2023 > stent x1 History of cardiac cath (10/2023) 10/2023 > stent x1 Family History Father Diabetes Hypertension Heart disease Melanoma Mother Diabetes Hypertension Heart disease Social History Smoking Status: Never smoker Second Hand Exposure: No; Do You Dip or Chew Tobacco: No; Tobacco Cessation Education Requested by Patient: No Hx Alcohol Use: No Hx Substance Use: No Preferred Language: Mongolian Communication Ability: Effective Early Childhood Lead Teacher Required: No Beliefs That Will Affect Care: None marital status: Current Living Situation: Spouse Other Information That Helps Us Care for You: No Feels Safe at Home: Yes Safety Concerns: Feels Safe At This Time Assistive Devices: Glasses and Wheelchair Review of Systems Constitutional: no fever Eyes: no problem reported Ear, Nose, Mouth, Throat: no problem reported Respiratory: no cough and no dyspnea Cardiovascular: no chest pain Gastrointestinal: no abdominal pain, no nausea, no vomiting and no diarrhea/loose stools Integumentary: no rash Physical Exam Constitutional: not in distress Eyes: PERRL, conjunctivae normal, anicteric sclerae ENMT: external ear and nose normal, oropharynx normal Neck: trachea midline, no thyromegaly Respiratory: normal respiratory effort, lungs clear to auscultation Cardiovascular: RRR, no murmur, no edema Gastrointestinal (Abdomen): normal bowel sounds, soft, nontender, no hepatosplenomegaly Musculoskeletal: Extremities: no cyanosis and no clubbing Skin: no rashes, warm and dry Neurologic: awake; not confused Results & Data Vital Signs (Past 12 Hours) Vital Signs Temp Pulse Pulse Resp BP Pulse Ox O2 Del Method 11/09/24 17:00 36.4 C L 65 23 102/64 97 Room Air 11/09/24 16:45 64 21 100/64 96 Room Air 11/09/24 16:30 65 22 103/70 96 Room Air 11/09/24 16:20 63 19 100/66 94 Room Air 11/09/24 16:10 65 21 107/66 95 Room Air 11/09/24 16:00 64 20 105/72 96 Room Air 11/09/24 15:50 72 18 98/72 L 100 Room Air 11/09/24 15:40 70 20 97/64 L 100 Room Air 11/09/24 15:30 66 20 124/75 100 Room Air 11/09/24 15:20 72 22 115/74 100 Room Air 11/09/24 15:10 64 23 105/76 99 Room Air 11/09/24 15:00 68 23 104/71 99 Room Air 11/09/24 14:50 36.9 C 85 22 125/76 98 Room Air 11/09/24 14:40 69 23 138/97 100 Oxymask 11/09/24 14:30 64 19 130/98 100 Oxymask 11/09/24 14:20 64 23 142/88 H 100 Oxymask 11/09/24 14:10 66 26 H 146/97 H 100 Oxymask 11/09/24 14:01 36 C L 49 L 17 156/98 H 100 Oxymask 11/09/24 11:37 36.6 C 99 H 22 112/70 99 Room Air O2 Flow Rate 11/09/24 17:00 11/09/24 16:45 11/09/24 16:30 11/09/24 16:20 11/09/24 16:10 11/09/24 16:00 11/09/24 15:50 11/09/24 15:40 11/09/24 15:30 11/09/24 15:20 11/09/24 15:10 11/09/24 15:00 11/09/24 14:50 11/09/24 14:40 4 11/09/24 14:30 4 11/09/24 14:20 4 11/09/24 14:10 6 11/09/24 14:01 6 11/09/24 11:37 Laboratory Results Laboratory Results POC Glucose 165 mg/dl (70-99) H 11/09/24 14:04 Impressions Retrograde Pyelogram 11/09/24 07:45 FL retrograde includes kub CLINICAL HISTORY: B/L RETROGRADE AND STENT PLACEMENT COMPARISON STUDY: CT of the abdomen and pelvis October 23, 2024. FLUOROSCOPY TIME: 1 minute and 23 seconds. Ka,r: 31.42 mGy FLUOROSCOPIC IMAGES: 3 FINDINGS: Fluoroscopy was provided during cystoscopy and bilateral retrograde pyelograms with right-sided lithotripsy and right ureteral stent placement. Peritoneal dialysis catheter is incidentally noted. IMPRESSION: Fluoroscopy provided during cystoscopy, bilateral retrograde pyelograms and right ureteral stent placement. ACT 112: Negative or not required by law. Electronically signed by: Abdirizak Castillo M.D. 11/09/2024 4:23 PM PG Care Time/CCT Total # of Minutes Spent Total Time Spent with Patient: Total time spent is greater than 50% in coordination of care (as documented) at patient's floor/unit and/or counseling patient: Coding Level of Care Code 95913 IN/OBS CONSULT LVL 5,80M Diagnoses ESRD (end stage renal disease) N18.6 Kidney stones, calcium oxalate N20.0
[2024-11-09 18:27] LABS: Hematocrit (blood only) 32.3 % (42.0-52.0); Hemoglobin 10.7 g/dl (14.0-18.0); Mean Corpuscular Hemoglobin 28.7 pg (25.0-34.0); Mean Corpuscular Hgb Conc 33.1 g/dL (32.0-36.0); Mean Corpuscular Volume 86.6 fL (80.0-100.0); Mean Platelet Volume 10.1 fL (9.4-12.4); Platelet Count 200 K/uL (130-400); RDW Coefficient of Variation 13.5 % (11.5-14.5); Red Blood Count 3.73 M/uL (4.70-6.10); White Blood Count 14.89 K/ul (4.8-10.8)
[2024-11-09] MEDS: DIATRIZOATE MEGLUMINE 30% 100ML VIAL INSTIL ONE (18:27)
[2024-11-09] MEDS: PROMETHAZINE HCL INJ 25 MG/ML 1 ML VIAL ONE (18:28)
[2024-11-09] MEDS: NovoLIN-R INSULIN PER UNIT CHARGE ONE (18:29)
[2024-11-09 19:06] LABS: BUN Creatinine Ratio 5.7 (10-20); Calcium 9.3 mg/dl (8.6-10.3); Creatinine Clr Calc Pharmacy 9.8 ml/min; Potassium 4.9 mmol/L (3.5-5.1)
--- NOTE | 2024-11-09 19:22 | Hospitalist Consultation ---
Date of Consultation November 09, 2024 Assessment & Plan (1) Status post urological surgery: (2) Kidney stones, calcium oxalate: (3) ESRD (end stage renal disease): Plan S/P Urological Surgery -Management per urology service -Pain control ordered, antiemetics ordered -BP dropped slightly overnight, would be cautious with additional opioids End Stage Kidney Disease | Requires Peritoneal Dialysis -Nephrology consulted for dialysis during hospitalization -NCCPD therapy ordered tonight per outpatient orders -Cr 10.17 on 11/09 -BMP ordered for a.m. Type 2 Diabetes Mellitus -Insulin regimen ordered per prior admission -Adjust as needed Diet: Renal diet Code Status: Full Code Supervising Physician Co-Signing Physician Notes Attending addendum: I have physically seen this patient, have supervised the medical residents activities, and agree with the H&P unless as otherwise noted. Assessment and Plan: Status post urologic surgery- Pain control and postop management per primary team ESRD/peritoneal dialysis- Nephrology consulted for management during hospitalization Creatinine 10.17 on 11/09, with BMP follow-up ordered Diabetes mellitus- Continue current regimen of insulin orders [facility] hospitalist service will follow along as needed during hospital stay History of Present Illness Attending Physician: Darrius Ceron, II, DO History of Present Illness Samuel William is a 64 year-old male with a medical history significant for end stage kidney disease, diabetes mellitus,, HTN, MCA CVA, ASCVD, hypercholesterolemia, tardive dyskinesia, and kidney stone. Patient was admitted to [facility] for observation after planned cystoscopy with left ureteral dilation, left retrograde pyelogram, stent placement and stone fragment removal. Procedure was completed the afternoon of 11/09/24, hospitalist service was consulted for medical management. At time of exam, patient nauseated and having some discomfort. Denies any additional symptoms at present, hasn't had much to drink after the procedure due to nausea. Allergies Allergy/AdvReac Type Severity Reaction Status Date / Time metoclopramide [From Reglan] Allergy Severe Tardive Verified 11/09/24 11:21 dyskinesia scopolamine Allergy Severe Hallucinati Verified 11/09/24 11:21 ng phenazopyridine AdvReac not to Verified 11/09/24 11:50 [From Pyridium] take due to kidney failure Home Medications Medication Instructions Recorded Confirmed Type allopurinol 100 mg tablet 100 mg PO QAM 08/21/24 11/09/24 History alprazolam 0.25 mg tablet (Xanax) 0.25 mg PO DAILY PRN Anxiety 08/21/24 11/09/24 History aspirin 81 mg tablet,delayed 81 mg PO HS 08/21/24 11/09/24 History release atorvastatin 40 mg tablet 40 mg PO HS 08/21/24 11/09/24 History bisacodyl 10 mg rectal suppository 10 mg MS DAILY PRN Constipation 08/21/24 11/09/24 History clopidogrel 75 mg tablet 75 mg PO QAM 08/21/24 11/09/24 History evolocumab 140 mg/mL subcutaneous 140 mg subcut UD 08/21/24 11/09/24 History pen injector (Gregor Delcid) finasteride 5 mg tablet 5 mg PO QAM 08/21/24 11/09/24 History gabapentin 100 mg capsule 300 mg PO QAM 08/21/24 11/09/24 History hydralazine 50 mg tablet 25 mg PO BID 08/21/24 11/09/24 History hydroxyzine HCl 25 mg tablet 25 mg PO QID PRN Itching 08/21/24 11/09/24 History magnesium oxide 400 mg (241.3 mg 400 mg PO BID 08/21/24 11/09/24 History magnesium) tablet nitroglycerin 0.4 mg sublingual 0.4 mg buccal UD PRN Chest Pain 08/21/24 11/09/24 History tablet oxycodone 5 mg tablet 5 mg PO BID PRN Pain 08/21/24 11/09/24 History pantoprazole 40 mg tablet,delayed 40 mg PO QAM 08/21/24 11/09/24 History release polyethylene glycol 3350 17 17 g PO DAILY PRN Constipation 08/21/24 11/09/24 History gram/dose oral powder (Miralax) senna-docusate sodium capsule 1 - 2 cap PO HS 08/21/24 10/29/24 History sucroferric oxyhydroxide 500 mg 500 mg PO BID 08/21/24 11/09/24 History chewable tablet (Velphoro) temazepam 7.5 mg capsule (Restoril) 7.5 mg PO HS PRN Sleep 08/21/24 11/09/24 History vit B,C-folic ac 800 mcg-zinc 12.5 1 tab PO QAM 08/21/24 11/09/24 History mg-selen-D3 2,000 unit-vit E tablet (RenaPlex-D) dupilumab 300 mg/2 mL subcutaneous 300 mg subcut UD 09/02/24 11/09/24 History pen injector (Dupixent) insulin degludec 200 unit/mL (3 50 unit subcut HS 09/02/24 11/09/24 History mL) subcutaneous pen (Tresiba FlexTouch U-200 insulin) insulin lispro 100 unit/mL 5 - 10 unit subcut BID 09/02/24 11/09/24 History subcutaneous pen (Humalog KwikPen (U-100) Insulin) cinacalcet 30 mg tablet (Sensipar) 30 mg PO 3XWK 10/19/24 11/09/24 History lactulose 10 gram/15 mL oral 10 g PO DAILY PRN Constipation 10/19/24 11/09/24 History solution potassium chloride 10 mEq 10 meq PO BID 10/29/24 11/09/24 History tablet,extended release cephalexin 500 mg capsule 500 mg PO BID 7 days #14 caps 11/10/24 Rx oxycodone-acetaminophen 7.5 mg-325 1 tab PO Q8H PRN pain #10 tabs 11/10/24 Rx mg tablet (Percocet) Patient History Medical History Cervical spinal stenosis Anxiety Hypertension History of recent hospitalization admitted 09/17/24 @ [facility]--severely dehydrated, had low BP, very weak, low urine output (bloody urine) History of kidney stones Hx of traumatic brain injury Brain bleed 2021 after fall > "resolved", no issues since Tardive dyskinesia R/t hx Reglan use Wheelchair dependent AV fistula Left wrist > "not functioning" Thyroid cancer Recent dx 06/2024--"very large nodule" repeat ultrasound 10/20/2024, awaiting endocrinology consult 11/2024 History of COVID-19 09/2023 Hx of myocardial infarction 1998, 10/2023 Status post placement of implantable loop recorder Implanted 05/2024 Hypercholesteremia Diabetes Gastroparesis BPH w urinary obs/LUTS Nephrolithiasis Neuropathy "Severe" > mobility issues ESRD (end stage renal disease) Dr Soto, 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 Hx of vascular surgery Ballooning procedure to left leg History of esophagogastroduodenoscopy (EGD) History of colonoscopy History of heart artery stent 10/2023 > stent x1 History of cardiac cath (10/2023) 10/2023 > stent x1 Family History Father Diabetes Hypertension Heart disease Melanoma Mother Diabetes Hypertension Heart disease Social History Smoking Status: Never smoker Second Hand Exposure: No; Do You Dip or Chew Tobacco: No; Hx Alcohol Use: No Hx Substance Use: No Preferred Language: Armenian Communication Ability: Effective 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 Beliefs That Will Affect Care: None marital status: Current Living Situation: Spouse Feels Safe at Home: Yes Assistive Devices: Glasses and Wheelchair Review of Systems Review of Systems: As per above Physical Exam Constitutional: WD/WN, vitals as above Eyes: + anicteric sclerae; no conjunctival abn ormality ENMT: Ears: no external ear abnormality Nose: no external nose abnormality Moist mucus membranes Respiratory: normal respiratory effort, lungs clear to auscultation Cardiovascular: Rate/Rhythm: regular rate and regular rhythm Gastrointestinal (Abdomen): Inspection/Auscultation: abdomen normal to inspection; abdomen not distended Percussion/Palpation: abdomen soft; no guarding Skin: no rashes, warm and dry Psychiatric: A+Ox3, euthymic affect Results & Data Results & Data Vital Signs (Past 12 Hours) Vital Signs Temp Pulse Pulse Resp BP Pulse Ox O2 Del Method 11/09/24 19:02 36.7 C 76 16 115/79 100 Room Air 11/09/24 18:38 37.2 C 75 16 119/68 100 Room Air 11/09/24 18:00 64 21 114/80 100 Room Air 11/09/24 17:31 66 13 106/66 99 Room Air 11/09/24 17:15 63 22 97/62 L 97 Room Air 11/09/24 17:00 36.4 C L 65 23 102/64 97 Room Air 11/09/24 16:45 64 21 100/64 96 Room Air 11/09/24 16:30 65 22 103/70 96 Room Air 11/09/24 16:20 63 19 100/66 94 Room Air 11/09/24 16:10 65 21 107/66 95 Room Air 11/09/24 16:00 64 20 105/72 96 Room Air 11/09/24 15:50 72 18 98/72 L 100 Room Air 11/09/24 15:40 70 20 97/64 L 100 Room Air 11/09/24 15:30 66 20 124/75 100 Room Air 11/09/24 15:20 72 22 115/74 100 Room Air 11/09/24 15:10 64 23 105/76 99 Room Air 11/09/24 15:00 68 23 104/71 99 Room Air 11/09/24 14:50 36.9 C 85 22 125/76 98 Room Air 11/09/24 14:40 69 23 138/97 100 Oxymask 11/09/24 14:30 64 19 130/98 100 Oxymask 11/09/24 14:20 64 23 142/88 H 100 Oxymask 11/09/24 14:10 66 26 H 146/97 H 100 Oxymask 11/09/24 14:01 36 C L 49 L 17 156/98 H 100 Oxymask 11/09/24 11:37 36.6 C 99 H 22 112/70 99 Room Air O2 Flow Rate 11/09/24 19:02 11/09/24 18:38 11/09/24 18:00 11/09/24 17:31 11/09/24 17:15 11/09/24 17:00 11/09/24 16:45 11/09/24 16:30 11/09/24 16:20 11/09/24 16:10 11/09/24 16:00 11/09/24 15:50 11/09/24 15:40 11/09/24 15:30 11/09/24 15:20 11/09/24 15:10 11/09/24 15:00 11/09/24 14:50 11/09/24 14:40 4 11/09/24 14:30 4 11/09/24 14:20 4 11/09/24 14:10 6 11/09/24 14:01 6 11/09/24 11:37 Resident Activity Tracking Resident Involvement: Resident Care Provided Care Provided: Adult Hospital Medicine
[2024-11-09] MEDS: MoRPHine SULFATE 2 MG/ML CARP IV PRN (19:55)
[2024-11-09] MEDS: ceFAZolin 2000MG 2,000 MG/15 ML SYR IV SCH (19:55)
[2024-11-09] MEDS ORDERED: GLUCAGON FOR INJ 1 MG VIAL SQ PRN (21:32)
[2024-11-09] MEDS ORDERED: GLUCOSE 40% GEL 15 GM TUBE PO PRN (21:32)
[2024-11-09] MEDS ORDERED: PHARMACY GLYCEMIC MGMT CONSULT PRN (21:32)
[2024-11-09] MEDS ORDERED: DEXTROSE 50% 50 ML SYRINGE IV PRN (21:32)
[2024-11-09] MEDS ORDERED: CARBOHYDRATES FOR HYPOGLYCEMIA PO PRN (21:32)
[2024-11-09] MEDS ORDERED: GLUCOSE 10 TAB/TUBE PO PRN (21:32)
[2024-11-09] MEDS: LANTUS PER UNIT CHARGE SQ SCH (22:03)
[2024-11-09] MEDS: INSULIN ASPART PER UNIT CHARGE SC SCH (22:49)
[2024-11-10] MEDS: INSULIN ASPART PER UNIT CHARGE SC ONE (03:12)
[2024-11-10 07:10] LABS: Hematocrit (blood only) 28.4 % (42.0-52.0); Hemoglobin 9.4 g/dl (14.0-18.0); Mean Corpuscular Hemoglobin 28.5 pg (25.0-34.0); Mean Corpuscular Hgb Conc 33.1 g/dL (32.0-36.0); Mean Corpuscular Volume 86.1 fL (80.0-100.0); Mean Platelet Volume 10.5 fL (9.4-12.4); Platelet Count 193 K/uL (130-400); RDW Coefficient of Variation 13.7 % (11.5-14.5); RDW Standard Deviation 42.2 fL (36.4-46.3); White Blood Count 12.14 K/ul (4.8-10.8)
[2024-11-10 07:24] LABS: BUN Creatinine Ratio 5.6 (10-20); Calcium 9.3 mg/dl (8.6-10.3); Creatinine Clr Calc Pharmacy 9.9 ml/min
--- NOTE | 2024-11-10 08:54 | Nephrology Progress Note ---
Date of Service November 10, 2024 Assessment & Plan (1) ESRD (end stage renal disease): Plan: * Will provide NCCPD therapy tonight as per outpatient orders. Dialysis nurse has been notified and orders placed in EMR. * Continue RenaPlex, Velphoro and Sensipar as per outpatient orders * Monitor BMP daily (2) Kidney stones, calcium oxalate: Plan: * s/p cystoscopy with right ureteral nephroscopy and laser destruction of a stone 11/09/[address] Ceron Admission and Anticipated Discharge Date Admission Date: November 09, 2024 Subjective Mr. William was evaluated in his hospital room this morning. He has significant discomfort from his recent urologic procedure. He reports PD was uncomplicated and effluent remains clear. He currently denies angina, dyspnea Review of Systems Constitutional: no fever Eyes: no problem reported Ear, Nose, Mouth, Throat: no problem reported Respiratory: no cough and no dyspnea Cardiovascular: no chest pain Gastrointestinal: no abdominal pain, no nausea, no vomiting and no diarrhea/loose stools Integumentary: no rash Physical Exam Constitutional: not in distress Eyes: PERRL, conjunctivae normal, anicteric sclerae ENMT: external ear and nose normal, oropharynx normal Neck: trachea midline, no thyromegaly Respiratory: normal respiratory effort, lungs clear to auscultation Cardiovascular: RRR, no murmur, no edema Gastrointestinal (Abdomen): normal bowel sounds, soft, nontender, no hepatosplenomegaly PD exit site w/ clean dry dressing in place Musculoskeletal: Extremities: no cyanosis and no clubbing Skin: no rashes, warm and dry Neurologic: awake; not confused Results & Data Vital Signs (Past 12 Hours) Vital Signs Temp Pulse Pulse Resp BP Pulse Ox O2 Del Method 11/10/24 08:19 37.2 C 85 20 11/10/24 07:53 37.2 C 85 20 114/78 98 Room Air 11/10/24 03:02 36.4 C L 90 16 93/68 L 97 Room Air 11/09/24 23:25 36.8 C 86 16 103/69 98 Room Air 11/09/24 21:40 36.9 C 85 16 120/81 99 Room Air Laboratory Results Laboratory Results - last 24 hr 11/09/24 11/09/24 11/09/24 11:12 12:11 13:42 WBC RBC Hgb Hct MCV MCH MCHC RDW Std Deviation RDW Coeff of Tanya Plt Count MPV Sodium Potassium Chloride Carbon Dioxide Anion Gap BUN Creatinine Est Cr Clr Drug Dosing eGFR BUN/Creatinine Ratio Glucose POC Glucose 242 H 175 H Calcium Stone Source Pending Stone Weight Pending Stone Composition Pending Stone Composition 2 Pending 11/09/24 11/09/24 11/09/24 14:04 18:12 21:06 WBC 14.89 H RBC 3.73 L Hgb 10.7 L Hct 32.3 L MCV 86.6 MCH 28.7 MCHC 33.1 RDW Std Deviation 42.0 RDW Coeff of Tanya 13.5 Plt Count 200 MPV 10.1 Sodium 139 Potassium 4.9 Chloride 100 Carbon Dioxide 24 Anion Gap 15 H BUN 58 H Creatinine 10.17 H* Est Cr Clr Drug Dosing 9.8 eGFR 5.23 BUN/Creatinine Ratio 5.7 L Glucose 234 H POC Glucose 165 H 274 H Calcium 9.3 Stone Source Stone Weight Stone Composition Stone Composition 2 11/10/24 11/10/24 11/10/24 03:05 06:14 07:52 WBC 12.14 H RBC 3.30 L Hgb 9.4 L Hct 28.4 L MCV 86.1 MCH 28.5 MCHC 33.1 RDW Std Deviation 42.2 RDW Coeff of Tanya 13.7 Plt Count 193 MPV 10.5 Sodium 137 Potassium 5.0 Chloride 97 L Carbon Dioxide 26 Anion Gap 14 H BUN 57 H Creatinine 10.18 H* Est Cr Clr Drug Dosing 9.9 eGFR 5.22 BUN/Creatinine Ratio 5.6 L Glucose 260 H POC Glucose 283 H 236 H Calcium 9.3 Stone Source Stone Weight Stone Composition Stone Composition 2 PG Care Time/CCT Total # of Minutes Spent Total Time Spent with Patient: Total time spent is greater than 50% in coordination of care (as documented) at patient's floor/unit and/or counseling patient: Coding Level of Care Code 35291 SUB INP/OBS CARE 3/50MIN Diagnoses ESRD (end stage renal disease) N18.6 Kidney stones, calcium oxalate N20.0
[2024-11-10] MEDS: oxyCODONE/ACETAMINOPHEN 5mg/325mg TAB PO PRN (10:46)
--- NOTE | 2024-11-10 10:50 | Urology Progress Note ---
Date of Service November 10, 2024 Assessment & Plan (1) Kidney stones, calcium oxalate: (2) Status post urological surgery: Plan: - Pt POD#1 s/p Cystoscopy with Left Ureteral dilation and Left Retrograde pyelogram. Right Ureteronephroscopy, Retrograde Pyelogram, Ureteral Dilation, Laser Destruction and Basket Extraction of the Stone, Insertion of Right Stent Catheter - Afebrile, lab work reviewed - creatinine 10.14, WBC 12.14 - Patient on peritoneal dialysis, continue as directed - Appreciate assistance from hospital medicine and nephrology - Having some stent discomfort, continue pain management - Dsouza in place, discussed removal after discharge as done previously - Expected clinical course reviewed, all questions answered - Will course of antibiotics at discharge - Patient ready for discharge today, orders placed - Discussed plan of care with patient's via telephone - Will arrange outpatient follow-up with our service to discuss ongoing management Admission and Anticipated Discharge Date Admission Date: November 09, 2024 Subjective Patient seen and examined at bedside this morning. He is awake and resting in bed. Reports flank discomfort. Dsouza intact. PD overnight. No fever or chills. He reports some intermittent nausea, better today so far. Review of Systems Constitutional: as per Subjective / HPI Genitourinary: + as per Subjective / HPI Physical Exam Constitutional: no acute distress Respiratory: normal respiratory effort; no respiratory distress and no labored breathing Musculoskeletal: Head/Neck/Chest: normocephalic Neurologic: moves all extremities and awake Psychiatric: Orientation: alert and oriented x 3 Genitourinary: Dsouza patent and draining blood tinged urine Results & Data Vital Signs (Past 12 Hours) Vital Signs Temp Pulse Resp BP Pulse Ox O2 Del Method 11/10/24 08:19 37.2 C 85 20 11/10/24 07:53 37.2 C 85 20 114/78 98 Room Air 11/10/24 03:02 36.4 C L 90 16 93/68 L 97 Room Air 11/09/24 23:25 36.8 C 86 16 103/69 98 Room Air PG Care Time/CCT Total # of Minutes Spent Total Time Spent with Patient: Total time spent is greater than 50% in coordination of care (as documented) at patient's floor/unit and/or counseling patient: Coding Level of Care Code None Diagnoses Kidney stones, calcium oxalate N20.0 Status post urological surgery Z98.890
--- NOTE | 2024-11-10 10:51 | Pharmacy Report ---
Pharmacy Glycemic Short Note 2 - Date of Service November 10, 2024 - Glycemic Short BSG Results (Last 24 hours): 11/09/24 11/09/24 11/09/24 11:12 12:11 14:04 Glucose POC Glucose 242 H 175 H 165 H 11/09/24 11/09/24 11/10/24 18:12 21:06 03:05 Glucose 234 H POC Glucose 274 H 283 H 11/10/24 11/10/24 06:14 07:52 Glucose 260 H POC Glucose 236 H OUTPATIENT ANTIDIABETIC REGIMEN: * Tresiba 50 units HS, humalog 5-10 units bid ASSESSMENT: * 64 year old s/p procedure, POD 1 - Pharmacy consulted for glycemic management. Received 50% of basal dose last evening post procedure. * Fasting BSG >200 - will titrate basal closer to home needs for today. PLAN FOR INPATIENT GLYCEMIC CONTROL: * Hold outpatient oral diabetes medications * Basal insulin * Lantus 35-40 units HS * Bolus insulin * NovoLog per scale ACHS or Q6hrs while NPO * Goal Range: Low 110 mg/dL - High 140 mg/dL * Correction Factor: 20 mg/dL/unit * Nutritional / Prandial insulin per carb ratio of 1 unit per 10 grams CHO consumed
[2024-11-10 15:13] VITALS: BP 119/67; PULSE 98; RESP 20; TEMP 98.6; O2SAT 97
--- NOTE | 2024-11-10 15:44 | Discharge Summary ---
Date of Service November 10, 2024 Admission HPI Per Admitting Provider Patient with nephrolithiasis here for scheduled bilateral ureteroscopy and right stone treatment. Principal Diagnosis Nephrolithiasis Discharge Exam Constitutional no acute distress Respiratory normal respiratory effort; no respiratory distress and no labored breathing Musculoskeletal Head/Neck/Chest: normocephalic Neurologic moves all extremities and awake Psychiatric Orientation: alert and oriented x 3 Genitourinary Dsouza intact Discharge Data Allergies Allergy/AdvReac Type Severity Reaction Status Date / Time metoclopramide [From Reglan] Allergy Severe Tardive Verified 11/09/24 11:21 dyskinesia scopolamine Allergy Severe Hallucinati Verified 11/09/24 11:21 ng phenazopyridine AdvReac not to Verified 11/09/24 11:50 [From Pyridium] take due to kidney failure Consultations 11/09/24 11:06 Consult Hospitalist Routine 11/09/24 11:08 Consult Nephrology Routine Procedures Performed Operation Date: 11/09/24 12:05 Actual Procedures p Cystoscopy, Ureteronephroscopy, Retrograde Pyelogram, Ureteral Dilation, Laser Destruction and Basket Extraction of the Stone,(Not Applicable) - Darrius Ceron DO s Insertion of Stent Catheter - Right(Not Applicable) - Darrius Ceron DO Ordered Studies 11/09/24 07:45 FL retrograde includes kub Routine Hospital Course (1) Kidney stones, calcium oxalate: (2) Status post urological surgery: - Pt POD#1 s/p Cystoscopy with Left Ureteral dilation and Left Retrograde pyelogram. Right Ureteronephroscopy, Retrograde Pyelogram, Ureteral Dilation, Laser Destruction and Basket Extraction of the Stone, Insertion of Right Stent Catheter - Afebrile, lab work reviewed - creatinine 10.14, WBC 12.14 - Patient on peritoneal dialysis, continue as directed - Appreciate assistance from hospital medicine and nephrology - Having some stent discomfort, continue pain management - Dsouza in place, discussed removal after discharge as done previously - Expected clinical course reviewed, all questions answered - Will course of antibiotics at discharge - Patient ready for discharge today, orders placed - Discussed plan of care with patient's via telephone - Will arrange outpatient follow-up with our service to discuss ongoing management Total Time Total Time Spent Total Time Spent (In Minutes): 29 Discharge Plan Discharge Items Patient Disposition: Home - Self-Care Reason For Visit: Nephrolithiasis Discharge Diagnosis: Nephrolithiasis Activity: Per Instructions section Driving/Machine Use: No driving while taking prescription pain medication Non-emergency contact: Surgeon and Urologist Call non-emergency contact if: your pain is not controlled, you have a fever and your temperature is above 101 Follow-up/Referrals: Vishal Oshea [Primary Care Provider] - 11/16/24 11:00 am (Scheduled with Dior Schwab PA-C) Diet: Dialysis Renal Addtl Attending Provider Instructions: Please take all medications as prescribed and keep all follow-ups as scheduled. Please call our office at [phone] with any questions, concerns or need to reschedule appointments for any reason. We are happy to assist you. While you have a ureteral stent in place: Some discomfort is normal. Certain movements may trigger pain or a feeling that you need to urinate. You may also feel mild soreness or pressure before or during urination. These symptoms should go away a few days after the stent is removed. Your urine may be slightly pink or red. This is due to bleeding caused by minor irritation from the stent. This may happen on and off while you have the stent, it is not harmful and is to be expected. Medication to help minimize discomfort or bladder spasms, or to prevent infection may be prescribed. Take this as directed. Drink plenty of fluids to help flush out your urinary tract. If you go home with a catheter, wash with soapy water and a fresh washcloth twice daily. We recommend mild bar soap such as Dial or Dove. When to call [facility] at [phone]: Your urine contains heavy blood clots You are constantly leaking urine Fever of 101F or higher, chills, nausea, or vomiting Your pain is not relieved with medication The end of the stent comes out of your urethra Pending Studies at Discharge: Yes Stand-Alone Forms: My [facility], Pain - Opioid Pain Management, Smoking Cessation Medications and DC Order Prescriptions: New cephalexin 500 mg capsule 500 mg PO BID 7 Days Qty: 14 0RF oxycodone-acetaminophen [Percocet] 7.5-325 mg tablet 1 tab PO Q8H PRN (Reason: pain) Qty: 10 0RF Continued atorvastatin 40 mg tablet 40 mg PO HS Repatha SureClick 140 mg/mL pen injector 140 mg subcut UD Patient Comments: every other week finasteride 5 mg tablet 5 mg PO QAM hydralazine 50 mg tablet 25 mg PO BID pantoprazole 40 mg tablet,delayed release (DR/EC) 40 mg PO QAM magnesium oxide 400 mg (241.3 mg magnesium) tablet 400 mg PO BID hydroxyzine HCl 25 mg tablet 25 mg PO QID PRN (Reason: Itching) gabapentin 100 mg capsule 300 mg PO QAM Patient Comments: only takes 100mg at HS RenaPlex-D 800 mcg-12.5 mg -2,000 unit tablet 1 tab PO QAM allopurinol 100 mg tablet 100 mg PO QAM clopidogrel 75 mg tablet 75 mg PO QAM nitroglycerin 0.4 mg tablet, sublingual 0.4 mg buccal UD PRN (Reason: Chest Pain) bisacodyl 10 mg suppository 10 mg [place] DAILY PRN (Reason: Constipation) aspirin 81 mg tablet,delayed release (DR/EC) 81 mg PO HS Velphoro 500 mg tablet,chewable 500 mg PO BID alprazolam [Xanax] 0.25 mg tablet 0.25 mg PO DAILY PRN (Reason: Anxiety) oxycodone 5 mg tablet 5 mg PO BID PRN (Reason: Pain) temazepam [Restoril] 7.5 mg capsule 7.5 mg PO HS PRN (Reason: Sleep) senna-docusate sodium Capsule 1 - 2 cap PO HS polyethylene glycol 3350 [Miralax] 17 gram/dose powder 17 g PO DAILY PRN (Reason: Constipation) potassium chloride 10 mEq Tablet Extended Release 10 meq PO BID insulin lispro [Humalog KwikPen Insulin] 100 unit/mL Insulin Pen 5 - 10 unit SUBCUT BID Patient Comments: with lunch and dinner insulin degludec [Tresiba FlexTouch U-200] 200 unit/mL (3 mL) Insulin Pen 50 unit SUBCUT HS Dupixent Pen 300 mg/2 mL Pen Injector 300 mg SUBCUT UD Patient Comments: every other week on mondays cinacalcet [Sensipar] 30 mg Tablet 30 mg PO 3XWK lactulose 10 gram/15 mL Solution 10 g PO DAILY PRN (Reason: Constipation) Discontinued oxycodone-acetaminophen 7.5-325 mg tablet 1 tab PO Q8H PRN (Reason: pain) Qty: 10 0RF Discharge Orders: Discharge Order (Routine); Ordered 11/10/24 Ordered By: Giselle Amaya/Other Patient Handouts: Cystoscopy Admission Data Admit Date/Time: 11/09/24 11:06 Attending Provider: Darrius Ceron Admit Provider: Darrius Ceron Primary Care Provider: Vishal Oshea Other Providers: Darrius Moon; Perla Wilson; Campbell Gordon; Eloisa Paiz; Danni Claros Other Interventions: Discharge Summary Assessment (RN) Last Done: 11/10/24 17:41 Coding Level of Care Code 24105 IN/OBS DISCH 30 MIN/LESS Diagnoses Kidney stones, calcium oxalate N20.0 Status post urological surgery Z98.890
[2024-11-10] MEDS ORDERED: LANTUS PER UNIT CHARGE SQ SCH (21:00)
[2024-11-11] MEDS ORDERED: INSULIN ASPART PER UNIT CHARGE SC SCH
--- NOTE | 2024-11-11 06:07 | Billing Data ---
Date of Service November 11, 2024 Coding Level of Care Code 93343 IN/OBS CONSULT LVL 3,45M
== END 2024-11-10 18:55 | disposition home or self-care (01) ==
LOC: ASU 10:50 → PACUINP 10:50 → 3E 18:32